=== PATIENT | male | born 1945 | race Caucasian/White ===

== ENCOUNTER 2018-12-29 11:57 | Emergency (ER) | payer OTHER, MEDICARE ==
--- NOTE | 2018-12-29 12:17 | ER Document Report ---
ED Medical Screen (RME) - General Chief Complaint: Shortness Of Breath Stated Complaint: URINARY PROBLEM Time Seen by Provider: 12/29/18 12:06 Mode of Arrival: Wheelchair Information source: Patient Notes: Very morbidly obese 73-year-old male presented to ED for extreme shortness of breath dyspnea. He states if he stands up for more than a few seconds he becomes extremely short of breath. He states he is gained about 70 pounds in the last 3 months. He states he was weighing about 400 pounds a couple years ago and now he weighs 500 pounds. Patient states he has a history of diabetes t ype 2 coronary artery disease with 2 stents prostate cancer with have his prostate removed by cryogenic surgery sleep apnea bronchitis pneumonia COPD CHF with severe water retention high blood pressure high cholesterol and morbidly obese. He states that for several years he weighed 400 and then he is slowly increased until now he weighs about 500 he is in a motorized wheelchair. He states he is a former smoker but does not smoke at this time. I have greeted and performed a rapid initial assessment of this patient. A comprehensive ED assessment and evaluation of the patient, analysis of test results and completion of medical decision making process will be conducted by an additional ED providers. Dictation of this chart was performed using voice recognition software; therefore, there may be some unintended grammatical errors. TRAVEL OUTSIDE OF THE [place] IN LAST 30 DAYS: No - Related Data Allergies/Adverse Reactions: No Known Allergies Allergy (Verified 12/29/18 11:58) Physical Exam - Vital signs Vitals: Temp Pulse Resp BP Pulse Ox 97.7 F 67 18 149/82 H 93 12/29/18 12:06 12/29/18 12:06 12/29/18 12:06 12/29/18 12:06 12/29/18 12:06 Course - Vital Signs Vital signs: Temp Pulse Resp BP Pulse Ox 97.7 F 67 18 149/82 H 93 12/29/18 12:06 12/29/18 12:06 12/29/18 12:06 12/29/18 12:06 12/29/18 12:06
--- NOTE | 2018-12-29 12:54 | RADIOLOGY REPORT (SQ) ---
EXAM DESCRIPTION: CHEST SINGLE VIEW COMPLETED DATE/TIME: 12/29/2018 12:37 pm REASON FOR STUDY: Short of breath gaining weight COMPARISON: None. EXAM PARAMETERS: NUMBER OF VIEWS: One view. TECHNIQUE: Single frontal radiographic view of the chest acquired. RADIATION DOSE: NA LIMITATIONS: None. FINDINGS: LUNGS AND PLEURA: No opacities, masses or pneumothorax. No pleural effusion. MEDIASTINUM AND HILAR STRUCTURES: No masses. Contour normal. HEART AND VASCULAR STRUCTURES: Cardiomegaly and pulmonary vascular prominence. BONES: No acute findings. HARDWARE: None in the chest. OTHER: No other significant finding. IMPRESSION: Cardiomegaly and pulmonary vascular prominence without overt pulmonary edema. TECHNICAL DOCUMENTATION: JOB ID: [id number] [employer]- All Rights Reserved Reading location - IP/workstation name: [email or web address]
[2018-12-29 13:26] LABS: ABSOLUTE EOSINOPHILS # (AUTO) 0.2 10^3/uL (0.0-0.6); ABSOLUTE LYMPHOCYTES (AUTO) 0.4 10^3/uL (0.5-4.7); ABSOLUTE MONOCYTES (AUTO) 0.6 10^3/uL (0.1-1.4); ABSOLUTE NEUT (AUTO) 3.2 10^3/uL (1.7-8.2); BASOPHILS % (AUTO) 1.1 % (0-2); EOSINOPHILS % (AUTO) 4.7 % (0-6); HEMATOCRIT 34.8 % (37.9-51.0); HEMOGLOBIN 11.4 g/dL (13.5-17.0); LYMPHOCYTES % (AUTO) 8.3 % (13-45); MEAN CORPUSCULAR HEMOGLOBIN 29.8 pg (27.0-33.4); MEAN CORPUSCULAR HGB CONC 32.8 g/dL (32.0-36.0); MEAN CORPUSCULAR VOLUME 91 fl (80-97); MONOCYTES % (AUTO) 13.8 % (3-13); PLATELET COUNT 138 10^3/uL (150-450); RED BLOOD COUNT 3.82 10^6/uL (4.35-5.55); RED CELL DISTRIBUTION WIDTH 15.8 % (11.5-14.0); SEGMENTED NEUTROPHILS % (AUTO) 72.1 % (42-78); TOTAL CELLS COUNTED % (AUTO) 100 %; WHITE BLOOD COUNT 4.4 10^3/uL (4.0-10.5)
[2018-12-29 13:39] LABS: ALANINE AMINOTRANSFERASE 25 U/L (21-72); ALKALINE PHOSPHATASE 93 U/L (38-126); ANION GAP 8 (5-19); ASPARTATE AMINO TRANSFERASE 40 U/L (17-59); BILIRUBIN,DIRECT 0.4 mg/dL (0.0-0.4); BILIRUBIN,TOTAL 0.9 mg/dL (0.2-1.3); BLOOD UREA NITROGEN 42 mg/dL (7-20); CALCIUM 9.1 mg/dL (8.4-10.2); CARBON DIOXIDE 32 mmol/L (22-30); CHLORIDE 102 mmol/L (98-107); CREATINE KINASE 268 U/L (55-170); GLUCOSE 145 mg/dL (75-110); POTASSIUM 4.5 mmol/L (3.6-5.0)
[2018-12-29 14:12] LABS: CREATINE KINASE MB 1.33 ng/mL (<4.55); NT PRO BNP 995 pg/mL (5-900)
[2018-12-29 14:18] LABS: TROPONIN I < 0.012 ng/mL
[2018-12-29] MEDS ORDERED: KETOROLAC TROMETHAMINE INJ/PF 30 MG/1 ML SDV IV ONE (18:43)
--- NOTE | 2018-12-29 18:49 | EKG REPORT ---
SEVERITY:- ABNORMAL ECG - SINUS RHYTHM ATRIAL PREMATURE COMPLEX NONSPECIFIC T ABNORMALITIES, DIFFUSE LEADS : Confirmed by: Jones Mary MD 29-Dec-2018 18:48:06
--- NOTE | 2018-12-29 18:53 | ER Document Report ---
ED General - General Chief Complaint: Shortness Of Breath Stated Complaint: URINARY PROBLEM Time Seen by Provider: 12/29/18 12:06 Primary Care Provider: BUDDY,CAYLA [Primary Care Provider] - Follow up as needed Mode of Arrival: Wheelchair Notes: Very morbidly obese 73-year-old male with congestive heart failure, diabetes, hypertension, COPD, hyperlipidemia presents to the emergency department with chief complaint of shortness of breath and dyspnea on exertion. He states that if he stands up for more than a few seconds he becomes extremely short of breath. He states a 70 pound weight gain in the last 3 months. was very upset upon initial interview because they have been here for quite a while and she feels they have not been getting good care. Patient denies any recent illness, denies dizziness or lightheadedness, denies any weakness or paralysis in any of extremities, denies any chest pain, denies abdominal pain, complains of lower back pain, complains of frequent urination, no other complaints. TRAVEL OUTSIDE OF THE [place] IN LAST 30 DAYS: No - Related Data Allergies/Adverse Reactions: No Known Allergies Allergy (Verified 12/29/18 11:58) Past Medical History - General Information source: Patient - Social History Smoking Status: Former Smoker Frequency of alcohol use: None Drug Abuse: None Family History: None Patient has suicidal ideation: No Patient has homicidal ideation: No - Past Medical History Cardiac Medical History: Reports: Hx Congestive Heart Failure Pulmonary Medical History: Reports: Hx Bronchitis, Hx COPD, Hx Pneumonia Endocrine Medical History: Reports: Hx Diabetes Mellitus Type 2 Renal/ Medical History: Denies: Hx Peritoneal Dialysis Past Surgical History: Reports: Hx Cardiac Surgery - stents, Hx Genitourinary Surgery - prostate Review of Systems - Review of Systems Constitutional: See HPI EENT: See HPI Cardiovascular: See HPI Respiratory: See HPI Gastrointestinal: See HPI Genitourinary: See HPI Male Genitourinary: No symptoms reported Musculoskeletal: No symptoms reported Skin: No symptoms reported Hematologic/Lymphatic: No symptoms reported Neurological/Psychological: No symptoms reported Physical Exam - Vital signs Vitals: Temp Pulse Resp BP Pulse Ox 97.7 F 67 18 149/82 H 93 12/29/18 12:06 12/29/18 12:06 12/29/18 12:06 12/29/18 12:06 12/29/18 12:06 - Notes Notes: PHYSICAL EXAMINATION: Reviewed vital signs and charting by RN GENERAL: Alert, interacts well. No acute distress. Morbid obesity HEAD: Normocephalic, atraumatic. EYES: Pupils equal and round. Extraocular movements intact. ENT: Oral mucosa moist, tongue midline. NECK: Full range of motion. Trachea midline. LUNGS: Clear to auscultation bilaterally, no wheezes, rales, or rhonchi. No respiratory distress. HEART: Regular rate and rhythm. No murmur ABDOMEN: Extremely large pannus EXTREMITIES: Moves all 4 extremities spontaneously. Bilateral lower extremities edematous, nonpitting, very tight PSYCH: Normal affect, normal mood. SKIN: Warm, dry, normal turgor. No rashes or lesions noted. Course - Re-evaluation Re-evalutation: 12/29/18 19:36 Patient very dissatisfied. proceeded to vent after a thorough discussion she calm down. Patient's BNP 995 but there is no trend. Lungs were clear to a uscultation in all briones. Patient states he takes Lasix 80 mg daily but he contradicted himself and said that he has not urinated since 10:00 this morning. No acute distress. At this time patient was very impatient and angry and said he just wanted to go home. I discussed with him giving him a short course of Bumex to see if that will help with the fluid retention, gave him Toradol 15 mg IV once, gave him dexamethasone 10 mg IV once. His blood glucose was 145. Patient has no red flags for back pain like urinary retention, saddle paresthesia, bowel incontinence, IV drug use or fevers. Also, I asked patient to ambulate on pulse ox but he was very fed up and wanted to leave. At this ti me he is stable for discharge. - Vital Signs Vital signs: Temp Pulse Resp BP Pulse Ox 97.9 F 63 17 103/88 H 96 12/29/18 19:17 12/29/18 19:17 12/29/18 19:17 12/29/18 19:17 12/29/18 19:17 - Laboratory Result Diagrams: 12/29/18 12:56 12/29/18 12:56 Laboratory results interpreted by me: 12/29/18 12/29/18 12/29/18 12:56 12:56 12:56 RBC 3.82 L Hgb 11.4 L Hct 34.8 L RDW 15.8 H Plt Count 138 L Lymphocytes % 8.3 L Monocytes % 13.8 H Absolute Lymphocytes 0.4 L Carbon Dioxide 32 H BUN 42 H Creatinine 1.67 H Est GFR ( Amer) 49 L Est GFR (Non-Af Amer) 41 L Glucose 145 H Creatine Kinase 268 H NT-Pro-B Natriuret Pep 995 H Discharge - Discharge Clinical Impression: Shortness of breath, Weight gain Back pain Qualifiers: Back pain location: low back pain Chronicity: acute Back pain laterality: bilateral Sciatica presence: without sciatica Qualified Code(s): M54.5 - Low back pain Condition: Good Disposition: HOME, SELF-CARE Additional Instructions: You are seen in the emergency department this evening for us of breath, weight gain, back pain. Because we were unable to get a urine sample [facility] results. Also, because you were having shortness of breath and the weight gain we are concerned that you might be having worsening CHF. Your BNP here in the emergency department was elevated but we do not have a good trend over time to see where you are at. Nonetheless, because you have not been responding to Lasix I also added a short course of a medication called Bumex that you can take once daily in the morning to help remove some of the fluid with your Lasix. Also, for your back pain you received a couple of medications, one is Toradol and the other is dexamethasone, and NSAID and a steroid, respectively. These will help with the pain and should help calm things down. Starting tomorrow morning I would take naproxen 500 mg every 12 hours with food or milk arou [id number] for the next week as it takes a good 24 to 36 hours for the anti- inflammatory effects to start with. [facility] to discuss [facility]. If you develop severe acute shortness of breath, severe chest pain, you pass out, or have any other concerning symptoms please immediately return to the emergency department. Prescriptions: Bumetanide [Bumex 1 mg Tablet] 1 tab PO DAILY #14 tab Referrals: [facility] [Primary Care Provider] - Follow up as needed
[2018-12-29 19:18] VITALS: BP 103/88
== END 2018-12-29 19:18 | disposition home or self-care (01) ==
LOC: ER 11:57
DX: R06.02 Shortness of breath (principal); M54.5 Low back pain; R63.5 Abnormal weight gain; R06.00 Dyspnea, unspecified; I50.9 Heart failure, unspecified; E11.9 Type 2 diabetes mellitus without complications; I11.0 Hypertensive heart disease with heart failure; J44.9 Chronic obstructive pulmonary disease, unspecified; Z87.891 Personal history of nicotine dependence
CPT/HCPCS: 93005; 99285; 96374; 36415; 82553; 82550; 85025; 80053; 84484; 83880; 71045; 93010; J1885

== ENCOUNTER 2019-06-01 11:56 | Inpatient (IN) | payer OTHER, MEDICARE ==
[2019-06-01 13:54] LABS: ABSOLUTE BASOPHILS # (AUTO) 0.1 10^3/uL (0.0-0.2); ABSOLUTE EOSINOPHILS # (AUTO) 0.2 10^3/uL (0.0-0.6); ABSOLUTE LYMPHOCYTES (AUTO) 0.4 10^3/uL (0.5-4.7); ABSOLUTE MONOCYTES (AUTO) 0.7 10^3/uL (0.1-1.4); ABSOLUTE NEUT (AUTO) 4.6 10^3/uL (1.7-8.2); BASOPHILS % (AUTO) 1.1 % (0-2); EOSINOPHILS % (AUTO) 3.1 % (0-6); HEMATOCRIT 30.7 % (37.9-51.0); HEMOGLOBIN 10.1 g/dL (13.5-17.0); LYMPHOCYTES % (AUTO) 6.9 % (13-45); MEAN CORPUSCULAR HEMOGLOBIN 29.7 pg (27.0-33.4); MEAN CORPUSCULAR HGB CONC 32.9 g/dL (32.0-36.0); MEAN CORPUSCULAR VOLUME 91 fl (80-97); MONOCYTES % (AUTO) 12.3 % (3-13); PLATELET COUNT 187 10^3/uL (150-450); RED BLOOD COUNT 3.39 10^6/uL (4.35-5.55); RED CELL DISTRIBUTION WIDTH 16.5 % (11.5-14.0); SEGMENTED NEUTROPHILS % (AUTO) 76.6 % (42-78); TOTAL CELLS COUNTED % (AUTO) 100 %; WHITE BLOOD COUNT 5.9 10^3/uL (4.0-10.5)
--- NOTE | 2019-06-01 14:14 | ER Document Report ---
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 Patient is morbidly obese with a BMI of 80 which adds to his breathing difficulties. Patient states he has put on weight and on review of the medical records the patient has gained around x20 kilograms in 5 months. Patient states he is able to void although it is a process to urinate. TRAVEL OUTSIDE OF THE [place] IN LAST 30 DAYS: No - Related Data Allergies/Adverse Reactions: ROSETTE Inhibitors Allergy (Unknown, Verified 06/01/19 16:10) Home Medications: pt reports no changed since discharge in december. pt reports he has not started the terrazosin as it just arrived from mail the other day. Past Medical History - General Information source: Patient, [facility] Records - Social History Smoking Status: Former Smoker Cigarette use (# per day): No Chew tobacco use (# tins/day): No Lives with: Spouse/Significant other Family History: None Patient has suicidal ideation: No Patient has homicidal ideation: No - Past Medical History Cardiac Medical History: Reports: Hx Congestive Heart Failure, Hx Heart Attack, Hx Hypercholesterolemia, Hx Hypertension Pulmonary Medical History: Reports: Hx Bronchitis, Hx COPD, Hx Pneumonia, Hx Sleep Apnea - On BiPAP Endocrine Medical History: Reports: Hx Diabetes Mellitus Type 2 Past Surgical History: Reports: Hx Cardiac Catheterization, Hx Cardiac Surgery - stents, Hx Genitourinary Surgery - prostate, Other - Left index finger amputation distal phalanx. Cryogenic surgery prostate wi Review of Systems - Review of Systems Constitutional: See HPI, Weight gain - 20 kilograms in 6 months EENT: No symptoms reported Cardiovascular: No symptoms reported Respiratory: See HPI, Short of breath Gastrointestinal: No symptoms reported Genitourinary: No symptoms reported Male Genitourinary: No symptoms reported Musculoskeletal: See HPI, Leg swelling Skin: No symptoms reported Hematologic/Lymphatic: No symptoms reported Neurological/Psychological: No symptoms reported -: Yes All other systems reviewed and negative Physical Exam - Vital signs Vitals: Temp Pulse Resp BP Pulse Ox 97.6 F 89 21 H 162/80 H 96 06/01/19 12:11 06/01/19 12:11 06/01/19 12:11 06/01/19 12:11 06/01/19 12:11 - Notes Notes: Physical Exam: General: Alert, appears short of breath but saturating 98% on room air. HEENT: Normocephalic. Atraumatic. PERRL. Extraocular movements intact. Oropharynx clear. Neck: Supple. Non-tender. Respiratory: No respiratory distress. Clear and equal breath sounds bilaterally. Cardiovascular: Regular rate and rhythm. Abdominal: Morbidly obese, large pannus. Back: No gross abnormalities. Extremities: Moves all four extremities. Upper extremities: Normal inspection. Normal ROM. Lower extremities: See lower extremity exam. Neurological: Normal cognition. AAOx4. Normal speech. Psychological: Normal affect. Normal Mood. Skin: 4+ pitting edema to lower extremities bilaterally with associated erythema and blistering, wearing stockings. Course - Re-evaluation Re-evalutation: 06/01/19 15:22 Patient's pulse ox is 98% on room air while he is laying almost flat with his morbidly obese abdomen pushing up on his diaphragm. - Vital Signs Vital signs: Temp Pulse Resp BP Pulse Ox 97.6 F 89 16 130/83 H 98 06/01/19 12:11 06/01/19 12:11 06/01/19 12:54 06/01/19 14:20 06/01/19 14:20 - Laboratory Result Diagrams: 06/01/19 13:25 06/01/19 13:25 Laboratory results interpreted by me: 06/01/19 06/01/19 06/01/19 13:25 13:25 13:25 RBC 3.39 L Hgb 10.1 L Hct 30.7 L RDW 16.5 H Lymph % (Auto) 6.9 L Absolute Lymphs (auto) 0.4 L VBG HCO3 Carbon Dioxide 33 H BUN 39 H Creatinine 2.15 H Est GFR ( Amer) 37 L Est GFR (MDRD) Non-Af 30 L Magnesium 2.5 H Creatine Kinase 468 H NT-Pro-B Natriuret Pep 1980 H Total Protein 8.5 H 06/01/19 14:20 RBC Hgb Hct RDW Lymph % (Auto) Absolute Lymphs (auto) VBG HCO3 32.6 H Carbon Dioxide BUN Creatinine Est GFR ( Amer) Est GFR (MDRD) Non-Af Magnesium Creatine Kinase NT-Pro-B Natriuret Pep Total Protein - Diagnostic Test Radiology reviewed: Image reviewed, Reports reviewed - Chest x-ray shows mild cardiomegaly with normal pulmonary vascular appearance. - EKG Interpretation by Me EKG shows normal: Sinus rhythm, [place], Intervals, QRS Complexes. abnormal: ST-T Waves - Diffuse nonspecific T wave abnormalities Rate: Normal - 87 Rhythm: NSR Voltage: Decreased voltage When compared to previous EKG there are: No significant change - Consults Dr. Fleming Time consulted: 16:00 Consulted provider: will come to ER Discharge - Discharge Clinical Impression: CO2 retention, Obstructive sleep apnea of adult, Anasarca, Morbid obesity with BMI of 70 and over, adult, Dyspnea on minimal exertion Condition: Good Disposition: ADMITTED INPATIENT Admitting Provider: Jennifer (Hospitalist) Unit Admitted: [facility] Referrals: [facility] [Primary [facility]] - Follow up as needed Scribe Attestation: 06/01/19 16:14 I personally performed the services described in the documentation, reviewed and edited the documentation which was dictated to the scribe in my presence, and it accurately records my words and actions. I personally performed the services described in the documentation, reviewed and edited the documentation which was dictated to the scribe in my presence, and it accurately records my words and actions.
--- NOTE | 2019-06-01 14:18 | RADIOLOGY REPORT (SQ) ---
EXAM DESCRIPTION: CHEST SINGLE VIEW COMPLETED DATE/TIME: 06/01/2019 1:56 pm REASON FOR STUDY: SOB COMPARISON: 01/25/2019. EXAM PARAMETERS: NUMBER OF VIEWS: One view. TECHNIQUE: Single frontal radiographic view of the chest acquired. RADIATION DOSE: NA LIMITATIONS: None. FINDINGS: LUNGS AND PLEURA: No opacities, masses or pneumothorax. No pleural effusion. MEDIASTINUM AND HILAR STRUCTURES: Stable right paratracheal fullness likely due to superimposed vesse ls. No masses. Contour normal. HEART AND VASCULAR STRUCTURES: Mild cardiomegaly. Normal vasculature. BONES: No acute findings. HARDWARE: None in the chest. OTHER: No other significant finding. IMPRESSION: STABLE APPEARANCE. MILD CARDIOMEGALY. NO ACUTE RADIOGRAPHIC FINDING IN THE CHEST. TECHNICAL DOCUMENTATION: JOB ID: [id number] [employer]- All Rights Reserved Reading location - IP/workstation name: [email or web address]
[2019-06-01 14:29] LABS: ALKALINE PHOSPHATASE 88 U/L (38-126); ANION GAP 9 (5-19); ASPARTATE AMINO TRANSFERASE 54 U/L (17-59); BILIRUBIN,DIRECT 0.2 mg/dL (0.0-0.4); BILIRUBIN,TOTAL 0.9 mg/dL (0.2-1.3); BLOOD UREA NITROGEN 39 mg/dL (7-20); CALCIUM 9.4 mg/dL (8.4-10.2); CARBON DIOXIDE 33 mmol/L (22-30); CHLORIDE 100 mmol/L (98-107); CREATINE KINASE 468 U/L (55-170); GLUCOSE 79 mg/dL (75-110); POTASSIUM 4.3 mmol/L (3.6-5.0); TOTAL PROTEIN 8.5 g/dL (6.3-8.2)
[2019-06-01 14:39] LABS: VENOUS BLOOD BASE EXCESS 6.4 mmol/L; VENOUS BLOOD HCO3 32.6 mmol/L (20-32); VENOUS BLOOD PCO2 55.5 mmHg (35-63); VENOUS BLOOD PH 7.39 (7.30-7.42)
[2019-06-01 14:42] LABS: TROPONIN I 0.014 ng/mL
[2019-06-01] MEDS ORDERED: FUROSEMIDE INJ/PF 100 MG/10 ML SDV IV ONE (15:55)
[2019-06-01 16:52] LABS: APPEARANCE,URINE CLEAR; BILIRUBIN,URINE NEGATIVE (NEGATIVE); COLOR,URINE YELLOW; GLUCOSE, URINE NEGATIVE (NEGATIVE); KETONES,URINE NEGATIVE (NEGATIVE); LEUKOCYTE ESTERASE,URINE NEGATIVE (NEGATIVE); NITRITE,URINE NEGATIVE (NEGATIVE); PROTEIN,URINE NEGATIVE (NEGATIVE); URINE SPECIFIC GRAVITY 1.016; UROBILINOGEN,URINE NEGATIVE mg/dL (<2.0)
[2019-06-01] MEDS ORDERED: MAG HYDROX/AL HYDROX/SIMETH SUSP 30 ML UDCUP PO PRN (19:45)
--- NOTE | 2019-06-01 20:15 | EKG REPORT ---
SEVERITY:- ABNORMAL ECG - SINUS RHYTHM LOW VOLTAGE THROUGHOUT NONSPECIFIC T ABNORMALITIES, DIFFUSE LEADS : Confirmed by: Dorcas Yeh MD 01-Jun-2019 20:14:39
[2019-06-01] MEDS ORDERED: DOBUTAMINE HCL/D5W 250 ML IV PRN (20:18)
[2019-06-01] MEDS ORDERED: SODIUM CHLORIDE NASAL SPRAY 44 ML NASL PRN (20:28)
[2019-06-01] MEDS ORDERED: CARBOXYMETHYLCELLULOSE SOD 0.5% 0.4 ML DROPERETTE OU PRN (20:28)
[2019-06-01] MEDS ORDERED: DEXTROSE 40% GEL 15 GM TUBE PO PRN ×2 (20:30)
[2019-06-01] MEDS ORDERED: GLUCAGON,HUMAN RECOMB 1 MG INJ IM PRN (20:30)
[2019-06-01] MEDS ORDERED: DEXTROSE 50%-WATER 25 GM/50 ML DISP.SYRIN IV PRN ×2 (20:30)
[2019-06-01] MEDS ORDERED: ONDANSETRON 4 MG TAB.RAPDIS PO PRN (20:31)
--- NOTE | 2019-06-01 20:33 | PDOC H&P ---
History of Present Illness Admission Date/PCP: 06/01/19 16:18 [facility] Patient complains of: Difficulty breathing History of Present Illness: NOE VICK is a 73 year old male with multiple previous admissions who reports that over the last month he had slowly been getting more more short of breath, noted more swelling and increasing weight. He is super morbidly obese and has had multiple previous admissions. 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 Past Medical History Cardiac Medical History: Reports: Congestive Heart Failure, Myocardial Infarction, Hyperlipidema, Hypertension Pulmonary Medical History: Reports: Bronchitis, Chronic Obstructive Pulmonary Disease (COPD), Pneumonia, Sleep Apnea - DWAYNE On BiPAP Endocrine Medical History: Reports: Diabetes Mellitus Type 2 Renal/ Medical History: Reports: Chronic Kidney Disease GI Medical History: Denies: Crohn's Disease, Diverticulitis, Gastroesophageal Reflux Disease, Hepatitis, Ulcerative Colitis Musculoskeltal Medical History: Denies: Arthritis, Fibromyalgia Psychiatric Medical History: Denies: Depression Hematology: Reports: Anemia - With chronic kidney disease Denies: Bleeding Tendencies, Heparin Induced Thrombocytopenia, Neutropenia Past Surgical History Past Surgical History: Reports: Cardiac Catheterization, Other - Left index finger amputation distal phalanx. Cryogenic surgery prostate wi Social History Information Source: Patient Lives with: Spouse/Significant other Smoking Status: Former Smoker Electronic Cigarette use?: No Last Time Smoked: 40 years ago. Frequency of Alcohol Use: None Hx Recreational Drug Use: No Drugs: None Hx Prescription Drug Abuse: No - Advance Directive Resuscitation Status: Do Not Resuscitate Surrogate healthcare decision maker:: The patient informed this provider that he would not want to be intubated or resuscitated. We discussed the fact that in his current state his chances of meaningful survival would be extremely limited. Family History Family History: None Parental Family History Reviewed: No Children Family History Reviewed: No Sibling(s) Family History Reviewed.: No Medication/Allergy Home Medications: Acetaminophen [Tylenol 325 mg Tablet] 650 mg PO Q4HP PRN 06/01/19 Albuterol Sulfate [Proair Hfa Inhalation Aerosol 8.5 gm Mdi] 2 puff IH Q6HP PRN 06/01/19 Amlodipine Besylate [Norvasc 10 mg Tablet] 5 mg PO DAILY 06/01/19 Aspirin [Ecotrin 81 mg EC Tablet] 81 mg PO DAILY 06/01/19 Carboxymethylcellulose Sodium [Refresh Plus 0.5% Oph Soln 0.4 ml [place]] 1 drop OU BIDP PRN 06/01/19 Docusate Sodium [Colace 100 mg Capsule] 100 mg PO QHS 06/01/19 Fluticasone Propionate [Flonase Nasal Dustin 50 Mcg/Dustin 16 gm] 1 spray NASL Q12 06/01/19 Furosemide [Lasix 80 mg Tablet] 80 mg PO QAM 06/01/19 Glipizide [Glocotrol 5 Mg Tablet] 5 mg PO Q12 06/01/19 Hydralazine HCl [Apresoline 10 mg Tablet] 10 mg PO Q8 06/01/19 Multivitamin [Multiple Vitamins] 1 each PO DAILY 06/01/19 Petrolatum,White [Hydrophor] 1 applic TP BID 06/01/19 Simvastatin [Zocor 80 mg Tablet] 40 mg PO QHS 06/01/19 Sodium Chloride [Ector Nasal Dustin 44 ml Bottle] 1 spray NASL Q4HP PRN 06/01/19 Terazosin HCl [Hytrin] 2 mg PO QHS 06/01/19 Allergies/Adverse Reactions: ROSETTE Inhibitors Allergy (Unknown, Verified 06/01/19 16:10) Review of Systems All systems: reviewed and no additional remarkable complaints except as stated Constitutional: PRESENT: fatigue, weight gain Cardiovascular: PRESENT: dyspnea on exertion, edema, orthropnea Respiratory: PRESENT: dyspnea Gastrointestinal: PRESENT: constipation Neurological: PRESENT: tingling Hematologic/Lymphatic: PRESENT: easy bruising Physical Exam Vital Signs: Temp Pulse Resp BP Pulse Ox 98.2 F 87 20 130/53 H 91 L 06/01/19 19:13 06/01/19 19:13 06/01/19 19:13 06/01/19 19:13 06/01/19 19:13 Intake & Output 05/31/19 06/01/19 06/02/19 06:59 06:59 06:59 Output Total 750 Balance -750 Weight 224.3 kg General appearance: PRESENT: mild distress - Mild to moderate distress, morbidly obese - Super morbidly obese with BMI of 71 and body weight of 224 kg, well- developed Head exam: PRESENT: atraumatic, normocephalic Eye exam: PRESENT: conjunctiva pale. ABSENT: scleral icterus Ear exam: PRESENT: normal external ear exam. ABSENT: bleeding, drainage Mouth exam: PRESENT: moist, tongue midline Neck exam: PRESENT: other - Very large neck Respiratory exam: PRESENT: decreased breath sounds - Extremely diminished breath sounds partly due to body habitus, rales Cardiovascular exam: PRESENT: RRR, +S1, +S2, other - Extremely distant heart sounds due to body habitus GI/Abdominal exam: PRESENT: diminished bowel sounds - Diminished bowel sounds likely due to body habitus, soft, other - Markedly protuberant abdomen. ABSENT: tenderness Extremities exam: PRESENT: other - 4+ edema Musculoskeletal exam: ABSENT: normal inspection Neurological exam: PRESENT: alert, awake, oriented to person, oriented to place, oriented to time, oriented to situation, CN II-XII grossly intact Psychiatric exam: PRESENT: appropriate affect. ABSENT: agitated, anxious Focused psych exam: ABSENT: delusional, restlessness Skin exam: PRESENT: dry, warm, other - Occasional ecchymotic lesions. ABSENT: rash Results Laboratory Results: 06/01/19 13:25 06/01/19 13:25 06/01/19 06/01/19 06/01/19 13:25 13:25 14:20 WBC 5.9 RBC 3.39 L Hgb 10.1 L Hct 30.7 L MCV 91 MCH 29.7 MCHC 32.9 RDW 16.5 H Plt Count 187 Seg Neutrophils % 76.6 VBG pH 7.39 VBG pCO2 55.5 VBG HCO3 32.6 H VBG Base Excess 6.4 Sodium 142.1 Potassium 4.3 Chloride 100 Carbon Dioxide 33 H Anion Gap 9 BUN 39 H Creatinine 2.15 H Est GFR ( Amer) 37 L Glucose 79 Calcium 9.4 Magnesium 2.5 H Total Bilirubin 0.9 AST 54 Alkaline Phosphatase 88 Total Protein 8.5 H Albumin 4.0 Urine Color Urine Appearance Urine pH Ur Specific [place] Urine Protein Urine Glucose (UA) Urine Ketones Urine Blood Urine Nitrite Ur Leukocyte Esterase Urine WBC (Auto) Urine RBC (Auto) 06/01/19 16:24 WBC RBC Hgb Hct MCV MCH MCHC RDW Plt Count Seg Neutrophils % VBG pH VBG pCO2 VBG HCO3 VBG Base Excess Sodium Potassium Chloride Carbon Dioxide Anion Gap BUN Creatinine Est GFR ( Amer) Glucose Calcium Magnesium Total Bilirubin AST Alkaline Phosphatase Total Protein Albumin Urine Color YELLOW Urine Appearance CLEAR Urine pH 5.0 Ur Specific [place] 1.016 Urine Protein NEGATIVE Urine Glucose (UA) NEGATIVE Urine Ketones NEGATIVE Urine Blood NEGATIVE Urine Nitrite NEGATIVE Ur Leukocyte Esterase NEGATIVE Urine WBC (Auto) 0 Urine RBC (Auto) 0 06/01/19 06/01/19 13:25 13:25 Creatine Kinase 468 H Troponin I 0.014 NT-Pro-B Natriuret Pep 1980 H Impressions: Chest X-Ray 06/01/19 13:34 IMPRESSION: STABLE APPEARANCE. MILD CARDIOMEGALY. NO ACUTE RADIOGRAPHIC FINDING IN THE CHEST. Assessment and Plan - Diagnosis (1) Acute on chronic systolic (congestive) heart failure Is this a current diagnosis for this admission?: Yes Plan: 06/01/2019-we will place on dobutamine and continue furosemide. Monitor renal function and electrolytes. Monitor vital signs on dobutamine. (2) Acute kidney injury superimposed on CKD Is this a current diagnosis for this admission?: Yes Plan: 06/01/2019-creatinine is higher than baseline. Likely due to exacerbation of co ngestive heart failure. Plan as above (3) Anasarca Is this a current diagnosis for this admission?: Yes Plan: 06/01/2019-due to a combination of his congestive heart failure and chronic kidney disease. Serum albumin is normal therefore IV albumin will not help. Continue diuretic regimen (4) Acute respiratory failure with hypoxia Is this a current diagnosis for this admission?: Yes Plan: 06/01/2019-supplement oxygen to keep saturation 90 to 94% respiratory failure due to congestive heart failure and super morbid obesity (5) Diabetes mellitus type 2 in obese Is this a current diagnosis for this admission?: Yes Plan: 06/01/2019-continue baseline oral medication and Accu-Cheks with meals and at bedtime. Sliding scale available. (6) Morbid obesity with BMI of 70 and over, adult Is this a current diagnosis for this admission?: Yes Plan: 06/01/2019-significant contributor to overall clinical status. Patient should consider bariatric surgery. (7) Obstructive sleep apnea of adult Is this a current diagnosis for this admission?: Yes Plan: 06/01/2019-due to his morbid obesity. Continue the patient's BiPAP with his own machine (8) Coronary artery disease involving [place] coronary artery Qualifiers: [place] vs. transplanted heart: [place] heart Associated angina: without a ngina Qualified Code(s): I25.10 - Atherosclerotic heart disease of [place] coronary artery without angina pectoris Is this a current diagnosis for this admission?: Yes Plan: 06/01/2019-continue antihypertensives, aspirin, statin therapy and cardiac diet (9) Hypertension Qualifiers: Hypertension type: essential hypertension Qualified Code(s): I10 - Essential (primary) hypertension Is this a current diagnosis for this admission?: Yes Plan: 06/01/2019-continue antihypertensives. Wean patient from dobutamine when appropriate. - Plan Summary Summary: Patient with recent admission in December. Long-term management should include consideration of bariatric surgery. - Time Time Spent with patient: 35 or more minutes Medications reviewed and adjusted accordingly: Yes Anticipated discharge: Home with Homehealth - Inpatient Certification Based on my medical assessment, after consideration of the patient's comorbidities, presenting symptoms, or acuity I expect that the services needed warrant INPATIENT care.: Yes I certify that my determination is in accordance with my understanding of Medicare's requirements for reasonable and necessary INPATIENT services [42 CFR 412.3e].: Yes Medical Necessity: Failure to Improve With Outpatient Therapy, Significant Comorbidiites Make Outpatient Treatment Too Risky, Need For Continuous Telemetry Monitoring Post Hospital Care: D/C [employer] Documentation
[2019-06-01] MEDS ORDERED: (PENDING PHARMACY ID) (Terazosin Hcl [Hytrin] 2 MG) PO SCH (22:00)
[2019-06-01] MEDS ORDERED: (PENDING PHARMACY ID) (Simvastatin [Zocor 80 Mg Tablet] 40 MG) PO SCH (22:00)
[2019-06-01] MEDS: DOXAZOSIN MESYLATE 2 MG TABLET PO SCH (22:40)
[2019-06-01] MEDS: HYDRALAZINE HCL 10 MG TABLET PO SCH (22:41)
[2019-06-01] MEDS: GLIPIZIDE 5 MG TABLET PO SCH (22:41)
[2019-06-01] MEDS: SIMVASTATIN 40 MG TABLET PO SCH (22:41)
[2019-06-01] MEDS: FLUTICASONE NASAL SPRAY 50 MCG/SPRY 120 SPRAY/16 GM NASL SCH (22:42)
[2019-06-01] MEDS: HEPARIN SOD (PORCINE) 5,000 UNIT/ML 1 ML VIAL SUBCUT SCH (22:42)
[2019-06-01] MEDS: INSULIN LISPRO 100 UNIT/ML 3 ML VIAL SUBCUT SCH (22:42)
[2019-06-01] MEDS: DOBUTAMINE HCL/D5W 500 MG/250 ML RTUINJ IV PRN (22:45)
[2019-06-02] MEDS: ACETAMINOPHEN 325 MG TABLET PO PRN (00:46)
[2019-06-02] MEDS ORDERED: KETOROLAC TROMETHAMINE INJ/PF 30 MG/1 ML SDV IV PRN (01:40)
[2019-06-02 05:17] LABS: ABSOLUTE EOSINOPHILS # (AUTO) 0.1 10^3/uL (0.0-0.6); ABSOLUTE LYMPHOCYTES (AUTO) 0.4 10^3/uL (0.5-4.7); ABSOLUTE MONOCYTES (AUTO) 0.7 10^3/uL (0.1-1.4); ABSOLUTE NEUT (AUTO) 3.3 10^3/uL (1.7-8.2); BASOPHILS % (AUTO) 0.9 % (0-2); EOSINOPHILS % (AUTO) 2.9 % (0-6); HEMATOCRIT 28.5 % (37.9-51.0); HEMOGLOBIN 9.3 g/dL (13.5-17.0); LYMPHOCYTES % (AUTO) 8.6 % (13-45); MEAN CORPUSCULAR HEMOGLOBIN 29.4 pg (27.0-33.4); MEAN CORPUSCULAR HGB CONC 32.8 g/dL (32.0-36.0); MEAN CORPUSCULAR VOLUME 90 fl (80-97); MONOCYTES % (AUTO) 15.7 % (3-13); PLATELET COUNT 152 10^3/uL (150-450); RED BLOOD COUNT 3.17 10^6/uL (4.35-5.55); RED CELL DISTRIBUTION WIDTH 16.1 % (11.5-14.0); SEGMENTED NEUTROPHILS % (AUTO) 71.9 % (42-78); TOTAL CELLS COUNTED % (AUTO) 100 %; WHITE BLOOD COUNT 4.6 10^3/uL (4.0-10.5)
[2019-06-02] MEDS: HYDRALAZINE HCL 10 MG TABLET PO SCH ×3 (05:23→21:56)
[2019-06-02] MEDS: HEPARIN SOD (PORCINE) 5,000 UNIT/ML 1 ML VIAL SUBCUT SCH ×3 (05:29→22:01)
[2019-06-02 05:41] LABS: ALBUMIN 3.7 g/dL (3.5-5.0); ANION GAP 12 (5-19); BLOOD UREA NITROGEN 41 mg/dL (7-20); CALCIUM 9.2 mg/dL (8.4-10.2); CARBON DIOXIDE 27 mmol/L (22-30); CHLORIDE 105 mmol/L (98-107); GLUCOSE 81 mg/dL (75-110); PHOSPHORUS 4.3 mg/dL (2.5-4.5); POTASSIUM 4.1 mmol/L (3.6-5.0)
[2019-06-02] MEDS ORDERED: FUROSEMIDE 80 MG TABLET PO SCH (08:00)
[2019-06-02] MEDS: FLUTICASONE NASAL SPRAY 50 MCG/SPRY 120 SPRAY/16 GM NASL SCH ×2 (09:46→21:59)
[2019-06-02] MEDS: AMLODIPINE BESYLATE 10 MG TABLET PO SCH (09:48)
[2019-06-02] MEDS: DOCUSATE SODIUM 100 MG CAPSULE PO SCH ×2 (09:48→18:10)
[2019-06-02] MEDS: MULTIVITAMIN TABLET PO SCH (09:48)
[2019-06-02] MEDS: GLIPIZIDE 5 MG TABLET PO SCH ×2 (09:49→21:59)
[2019-06-02] MEDS: ASPIRIN 81 MG TABLET, ENT COATED PO SCH (09:49)
[2019-06-02] MEDS: INSULIN LISPRO 100 UNIT/ML 3 ML VIAL SUBCUT SCH ×4 (09:53→21:48)
[2019-06-02] MEDS: FUROSEMIDE INJ/PF 40 MG/4 ML SDV IV SCH ×3 (09:56→18:14)
[2019-06-02] MEDS ORDERED: AMLODIPINE BESYLATE 10 MG TABLET PO SCH (10:00)
[2019-06-02] MEDS: OXYCODONE HCL IR 5 MG TABLET PO PRN ×2 (12:03→18:15)
[2019-06-02] MEDS: PANTOT AC/MIN OIL/PET HY-PHL OINT 50 GM TOP SCH ×2 (12:22→18:12)
--- NOTE | 2019-06-02 13:10 | PDOC PROGRESS REPORT ---
Subjective Progress Note for:: 06/02/19 Subjective:: Patient is resting in bed. Clearly struggling. He is very frustrated. His reports that he is having sharp pain in the left flank. He has also had hearing injuries under the buttock. These lesions were bleeding just prior to admission. The patient is very frustrated. He also complains of trembling in his limbs. Reason For Visit: ANASARCA Physical Exam Vital Signs: Temp Pulse Resp BP Pulse Ox 97.6 F 95 22 H 127/58 H 95 06/02/19 11:16 06/02/19 11:16 06/02/19 11:16 06/02/19 11:16 06/02/19 11:16 Intake & Output 06/01/19 06/02/19 06/03/19 06:59 06:59 06:59 Intake Total 240 Output Total 1625 300 Balance -1625 -60 Weight 224.3 kg 224.3 kg General appearance: PRESENT: cooperative, mild distress, morbidly obese, well- developed Head exam: PRESENT: atraumatic, normocephalic Ear exam: PRESENT: normal external ear exam. ABSENT: bleeding, drainage Neck exam: PRESENT: other - Marked redundant tissue in the neck Respiratory exam: PRESENT: decreased breath sounds - Very decreased breath sound s.. ABSENT: tachypnea, wheezes Cardiovascular exam: PRESENT: RRR, +S1, +S2, other - Very distant heart sounds GI/Abdominal exam: PRESENT: normal bowel sounds, soft, other - Pendulous abdomen to the knees Neurological exam: PRESENT: alert, awake, oriented to person, oriented to place, oriented to time, oriented to situation Psychiatric exam: PRESENT: anxious Results Laboratory Results: 06/02/19 04:51 06/02/19 04:51 06/01/19 06/01/19 06/01/19 13:25 13:25 14:20 WBC 5.9 RBC 3.39 L Hgb 10.1 L Hct 30.7 L MCV 91 MCH 29.7 MCHC 32.9 RDW 16.5 H Plt Count 187 Seg Neutrophils % 76.6 VBG pH 7.39 VBG pCO2 55.5 VBG HCO3 32.6 H VBG Base Excess 6.4 Sodium 142.1 Potassium 4.3 Chloride 100 Carbon Dioxide 33 H Anion Gap 9 BUN 39 H Creatinine 2.15 H Est GFR ( Amer) 37 L Glucose 79 Calcium 9.4 Phosphorus Magnesium 2.5 H Total Bilirubin 0.9 AST 54 Alkaline Phosphatase 88 Total Protein 8.5 H Albumin 4.0 Urine Color Urine Appearance Urine pH Ur Specific [place] Urine Protein Urine Glucose (UA) Urine Ketones Urine Blood Urine Nitrite Ur Leukocyte Esterase Urine WBC (Auto) Urine RBC (Auto) 06/01/19 06/02/19 06/02/19 16:24 04:51 04:51 WBC 4.6 RBC 3.17 L Hgb 9.3 L Hct 28.5 L MCV 90 MCH 29.4 MCHC 32.8 RDW 16.1 H Plt Count 152 Seg Neutrophils % 71.9 VBG pH VBG pCO2 VBG HCO3 VBG Base Excess Sodium 144.0 Potassium 4.1 Chloride 105 Carbon Dioxide 27 Anion Gap 12 BUN 41 H Creatinine 2.03 H Est GFR ( Amer) 39 L Glucose 81 Calcium 9.2 Phosphorus 4.3 Magnesium 2.5 H Total Bilirubin AST Alkaline Phosphatase Total Protein Albumin 3.7 Urine Color YELLOW Urine Appearance CLEAR Urine pH 5.0 Ur Specific [place] 1.016 Urine Protein NEGATIVE Urine Glucose (UA) NEGATIVE Urine Ketones NEGATIVE Urine Blood NEGATIVE Urine Nitrite NEGATIVE Ur Leukocyte Esterase NEGATIVE Urine WBC (Auto) 0 Urine RBC (Auto) 0 06/01/19 06/01/19 13:25 13:25 Creatine Kinase 468 H Troponin I 0.014 NT-Pro-B Natriuret Pep 1980 H Impressions: Chest X-Ray 06/01/19 13:34 IMPRESSION: STABLE APPEARANCE. MILD CARDIOMEGALY. NO ACUTE RADIOGRAPHIC FINDING IN THE CHEST. Assessment and Plan - Diagnosis (1) Acute on chronic systolic (congestive) heart failure Is this a current diagnosis for this admission?: Yes Plan: 06/01/2019-we will place on dobutamine and continue furosemide. Monitor renal function and electrolytes. Monitor vital signs on dobutamine. 06/02/2019-the patient is tolerating dobutamine. He has increased urine output. There is noticeable decrease in swelling in his hands. Continue dobutamine at this time. (2) Acute kidney injury superimposed on CKD Is this a current diagnosis for this admission?: Yes Plan: 06/01/2019-creatinine is higher than baseline. Likely due to exacerbation of congestive heart failure. Plan as above 06/02/2019-nephrology will be seeing the patient. The asked about hemodialysis. This would be an extremely difficult hemodialysis patient and in fact I do not think he would do well on dialysis. I did tell the patient that we would need to go slowly and see how he responds to treatment. Nephrology will be seeing the patient as well. (3) Anasarca Is this a current diagnosis for this admission?: Yes Plan: 06/01/2019-due to a combination of his congestive heart failure and chronic kidney disease. Serum albumin is normal therefore IV albumin will not help. Continue diuretic regimen 06/02/2019-slowly improving. Progress will be very slow. (4) Acute respiratory failure with hypoxia Is this a current diagnosis for this admission?: Yes Plan: 06/01/2019-supplement oxygen to keep saturation 90 to 94% respiratory failure due to congestive heart failure and super morbid obesity 06/02/2019-continue oxygen supplementation. At this point he agrees mouth asleep by his BiPAP. (5) Diabetes mellitus type 2 in obese Is this a current diagnosis for this admission?: Yes Plan: 06/01/2019-continue baseline oral medication and Accu-Cheks with meals and at bedtime. Sliding scale available. 06/02/2019-continue Accu-Cheks as well as sliding scale insulin in addition to his glipizide (6) Morbid obesity with BMI of 70 and over, adult Is this a current diagnosis for this admission?: Yes Plan: 06/01/2019-significant contributor to overall clinical status. Patient should consider bariatric surgery. 06/02/2019-I did discuss with the patient and his if anyone had ever referred them for consideration of bariatric surgery. Even when he was less than 250 pounds there was a concern because he was extremely difficult to intubate. Since then his weight has doubled and it would be impossible to operate on the patient at this time. (7) Obstructive sleep apnea of adult Is this a current diagnosis for this admission?: Yes Plan: 06/01/2019-due to his morbid obesity. Continue the patient's BiPAP with his own machine 06/02/2019-continue BiPAP. His sleep apnea likely contributes to his obesity and heart failure by way of pulmonary hypertension. (8) Coronary artery disease involving [place] coronary artery Qualifiers: [place] vs. transplanted heart: [place] heart Associated angina: without angina Qualified Code(s): I25.10 - Atherosclerotic heart disease of [place] coronary artery without angina pectoris Is this a current diagnosis for this admission?: Yes Plan: 06/01/2019-continue antihypertensives, aspirin, statin therapy and cardiac diet 06/02/2019-currently asymptomatic with regard to acute coronary syndrome. Co ntinue current regimen. (9) Hypertension Qualifiers: Hypertension type: essential hypertension Qualified Code(s): I10 - Essential (primary) hypertension Is this a current diagnosis for this admission?: Yes Plan: 06/01/2019-continue antihypertensives. Wean patient from dobutamine when appropriate. 06/02/2019-we will continue his current regimen. He is tolerating the do butamine without adverse effect. (10) Obesity hypoventilation syndrome Is this a current diagnosis for this admission?: Yes Plan: 06/02/2019-the patient clearly has obesity hypoventilation syndrome complicating his already complex comorbidities. At this point he would not even be a surgical candidate for weight loss. This gives him an extremely poor prognosis. - Plan Summary Summary: Patient with recent admission in December. Long-term management should include consideration of bariatric surgery. 06/02/2019-after further discussion with the patient and his , the bariatric surgical intervention is not a possibility. I had a chance to talk to the patient's outside of the room. She expressed her frustration. She also expressed the patient's frustration. I did tell her that in all honestly I did not feel the patient would do well. In fact I thought he might get short-term relief from this intervention but he would only be back in the hospital and it would be likely that the windows between periods of decompensation would be getting shorter and shorter. Because I do not think he will make a meaningful recovery and that his condition will only progressively worsen I strongly suggested that the patient and his obtain a palliative care consult. I urged her to consider hospice care at this time. She expressed concern that if this was brought up her would think that she did not love him or care about him. He might think that she wants to get rid of them. I strongly reinforced the fact that after 50 years of marriage it is extremely unlikely th at the patient would think that way especially considering all that she sacrifices for the patient. We discussed the fact that the patient is scared but has an underlying suspicion as to the extremely poor prognosis. I have placed a consult for palliative care/hospice. - Time Time Spent with patient: 25-34 minutes Medications reviewed and adjusted accordingly: Yes Anticipated discharge: Hospice
[2019-06-02] MEDS: DOBUTAMINE HCL/D5W 500 MG/250 ML RTUINJ IV PRN (15:06)
--- NOTE | 2019-06-02 15:08 | RADIOLOGY REPORT (SQ) ---
EXAM DESCRIPTION: PICC INSERTION; U/S GUIDE FOR VASCULAR ACCESS COMPLETED DATE/TIME: 06/02/2019 2:21 pm; 06/02/2019 2:23 pm REASON FOR STUDY: NEED FOR CENTRAL LINE/PICC LINE; IV ABX COMPARISON: None. FLUOROSCOPY TIME: None. PICC line was placed at bedside 5 chest radiographs were obtained during the procedure, images saved to PACS. TECHNIQUE: Refer to Procedure. LIMITATIONS: None. PROCEDURE: The procedure, risks, benefits, and alternatives were discussed with the patient in the p reprocedural area, and all questions were answered. Informed consent was obtained verbally and in wri ting. The patient was then brought to the procedural suite, positioned supine on a gurney, and a time-out w as performed. At first the left upper extremity was evaluated with ultrasound and the brachial vein was found to be patent and compressible. The left upper extremity was then prepped and draped with 2% chlorhexidine utilizing standard sterile technique. After the skin over the basilic vein was anesthetized with 1% l idocaine, ultrasound guidance was used to access the vessel with a 21-gauge needle - a sonographic im age was stored for documentation. A 0.018 inch guidewire was then inserted through the needle and adv anced into the SVC. After that, the needle was exchanged over the guidewire for a peel-away sheath. A 5 [place] double -lumen PICC was then cut to the appropriate length of 45 cm, inserted through the sh eath and advanced into the SVC. After that, the peel-away sheath was removed and radiographic images of the chest was obtained to confirm proper position of the catheter tip within SVC. The lumens of the PICC were then aspirated, flushed with sterile saline and heparinized. At the end of the procedure the PICC was secured in place and a sterile dressing applied over it. The patient tolerated the procedure well without immediate complication. At the end of the procedure the patient's condition was unchanged from the preprocedural baseline. No IV conscious sedation was administered. Physiologic monitoring was provided before, during, and after the procedure. Documentation of [id number] time performing proceduralist spent monitoring the patient: 15 minutes. IMPRESSION: SUCCESSFUL PLACEMENT OF A 5 FR x 45 CM DOUBLE LUMEN PICC VIA THE LEFT BASILIC VEIN UTILI MENA SONOGRAPHIC GUIDANCE. COMMENT: Patient medication list reviewed: Yes- Quality ID# [id number]:Eligible professional attests to doc umenting in the medical record they obtained, updated, or reviewed the patient's current medications. . Quality ID 145: Final reports for procedures using fluoroscopy that document radiation exposure shemar stacie, or exposure time and number of fluorographic images (if radiation exposure indices are not avail able) Quality ID #76: The patient was prepped and draped using maximum sterile barrier technique including cap, mask, sterile gown, sterile gloves, a large sterile sheet, hand hygiene, and 2% Chlorhexidine fo r cutaneous antisepsis. When ultrasound is used, sterile ultrasound techniques are followed requiring sterile gel and sterile probes. TECHNICAL DOCUMENTATION: JOB ID: [id number] [employer]- All Rights Reserved Reading location - IP/workstation name: [email or web address]
--- NOTE | 2019-06-02 17:39 | PDOC CONSULTATION ---
Consultation Consult Date: 06/02/19 Provider Consulted: MARYANNE ALEJANDRO Consult reason:: I was asked to see the patient due to worsening kidney function in a patient with history of chronic kidney disease, congestive heart failure and anasarca. History of Present Illness Admission Date/PCP: 06/01/19 16:18 [place] [facility] History of Present Illness: NOE VICK is a 73 year old male who is morbidly obese, and has history of biventricular congestive heart failure, coronary artery disease, COPD, obstructive sleep apnea on CPAP, chronic kidney disease, diabetes, and hypertension who was sent to the emergency room via EMS from our office sent by Dr. Mederos for further evaluation and management. Patient was admitted between December and January of this year for congestive heart failure and acute on chronic kidney disease. During that admission the patient was diuresed and was treated with dobutamine and milrinone drips. Patient was discharged home slightly improved. However according to the since discharge the patient has gradually gained fluid and started to be more swollen associated with worsening shortness of breath. He has seen his [place] primary care provider on May 24 and his furosemide was increased from 60 mg twice daily to 80 mg twice daily. However according to the this did not really do anything with the patient's swelling and shortness of breath. He also saw an advanced practice provider of cardiology office in [facility] but according to the did not really change much. He presented to the office to see Dr. Mederos yesterday and he was noted to be very short of breath so he was sent to the emergency room. Patient has very limited echocardiogram done on January 10, 2019 which showed an LVEF possible 55%. Patient's relates that the patient has significant scrotal edema and a significant weight gain for the last few months. said that when they moved here in [place] from [place] in September of this year patient weighed 430 pounds and currently is about over 500 pounds. states the patient complains of left flank pain which is sharp but not steady for the last couple months. He has decreased appetite and appears to be more sleepy recently. He was also noted to have decreased urine output even with the increase in the furosemide dose. He limits his fluid intake to about 24 ounces daily. said he does not salt her food but they eat canned soups and canned meat. Upon presentation in the emergency room his initial evaluation included BUN of 39, creatinine of 2.15 with EGFR of 30. When he was discharged on January 30 he had a BUN of 24, creatinine of 1.35 with EGFR greater than 60. During that admission his kidney function has gotten worse to BUN of 73 creatinine of 2.41 with EGFR of 32 on January 10. His chest x-ray showed mild cardiomegaly but no acute findings. His BNP was 1980. He was started on dobutamine and Lasix 40 mg IV twice daily. So far he is passing a good amount of urine output producing about 1650 mL overnight since admission. tells me that she sees a little bit of difference and that his swelling in his hands and arms seems to be better. Past Medical History Cardiac Medical History: Reports: CHF-Diastolic, CHF-Systolic, Hyperlipidemia, Hypertension-primary, Myocardial Infarction, Pulmonary Hypertension Pulmonary Medical History: Reports: Bronchitis, Chronic Obstructive Pulmonary Disease (COPD), Pneumonia, Sleep Apnea - DWAYNE On BiPAP Endocrine Medical History: Reports: Diabetes Mellitus Type 2, Obesity Renal/ Medical History: Reports: Chronic Kidney Disease Stage III Malignancy Medical History: Reports: Other - Prostate cancer Hematology Medical History: Reports Anemia Past Surgical History Past Surgical History: Reports: Cardiac Catheterization, Other - Left index finger distal phalanx amputation,cryogenic partial prostatectomy Social History Information Source: Relative, [facility] Records Lives with: Spouse/Significant other Smoking Status: Former Smoker Electronic Cigarette use?: No Last Time Smoked: 40 years ago. Frequency of Alcohol Use: None Hx Recreational Drug Use: No Drugs: None Hx Prescription Drug Abuse: No - Advance Directive Resuscitation Status: Do Not Resuscitate Family History Family History: Other - Leukemia on his mother Parental Family History Reviewed: Yes Children Family History Reviewed: Yes Sibling(s) Family History Reviewed.: Unknown Medication/Allergy Home Medications: Acetaminophen [Tylenol 325 mg Tablet] 650 mg PO Q4HP PRN 06/01/19 Albuterol Sulfate [Proair Hfa Inhalation Aerosol 8.5 gm Mdi] 2 puff IH Q6HP PRN 06/01/19 Amlodipine Besylate [Norvasc 10 mg Tablet] 5 mg PO DAILY 06/01/19 Aspirin [Ecotrin 81 mg EC Tablet] 81 mg PO DAILY 06/01/19 Carboxymethylcellulose Sodium [Refresh Plus 0.5% Oph Soln 0.4 ml [place]] 1 drop OU BIDP PRN 06/01/19 Docusate Sodium [Colace 100 mg Capsule] 100 mg PO QHS 06/01/19 Fluticasone Propionate [Flonase Nasal Marcus 50 Mcg/Marcus 16 gm] 1 spray NASL Q12 06/01/19 Furosemide [Lasix 80 mg Tablet] 80 mg PO QAM 06/01/19 Glipizide [Glocotrol 5 Mg Tablet] 5 mg PO Q12 06/01/19 Hydralazine HCl [Apresoline 10 mg Tablet] 10 mg PO Q8 06/01/19 Multivitamin [Multiple Vitamins] 1 each PO DAILY 06/01/19 Petrolatum,White [Hydrophor] 1 applic TP BID 06/01/19 Simvastatin [Zocor 80 mg Tablet] 40 mg PO QHS 06/01/19 Sodium Chloride [[place] Nasal Marcus 44 ml Bottle] 1 spray NASL Q4HP PRN 06/01/19 Terazosin HCl [Hytrin] 2 mg PO QHS 06/01/19 Allergies/Adverse Reactions: ROSETTE Inhibitors Allergy (Unknown, Verified 06/01/19 16:10) Review of Systems All systems: reviewed and no additional remarkable complaints except as stated Review of Systems: Constitutional: ABSENT: chills, fatigue, fever(s), headache(s), weight loss; admits weight gain Eyes: ABSENT: visual disturbances Ears: ABSENT: hearing changes Cardiovascular: ABSENT: chest pain, orthropnea, palpitations; admits dyspnea at rest and exertion, admits edema Respiratory: ABSENT: cough, hemoptysis Gastrointestinal: ABSENT: abdominal pain, constipation, diarrhea, hematemesis, hematochezia, nausea, vomiting Genitourinary: ABSENT: dysuria, hematuria; reports decreased urine output Musculoskeletal: ABSENT: joint swelling Integumentary: ABSENT: rash, wounds Neurological: ABSENT: abnormal gait, abnormal speech, confusion, dizziness, focal weakness, numbness, syncope Psychiatric: ABSENT: anxiety, depression Endocrine: ABSENT: cold intolerance, heat intolerance, polydipsia, polyuria Hematologic/Lymphatic: ABSENT: easy bleeding, easy bruising, lymphadenopathy Physical Exam Vital Signs: Temp Pulse Resp BP Pulse Ox 97.6 F 93 22 H 128/64 H 95 06/02/19 11:16 06/02/19 14:39 06/02/19 11:16 06/02/19 14:39 06/02/19 11:16 Intake & Output 06/01/19 06/02/19 06/03/19 06:59 06:59 06:59 Intake Total 490 Output Total 1625 300 Balance -1625 190 Weight 224.3 kg 224.3 kg Exam: General appearance: Patient wearing his CPAP, cooperative, well-developed, well- nourished, morbidly obese Head exam: PRESENT: atraumatic, normocephalic Eye exam: PRESENT: Conjunctiva pale, EOMI, PERRLA. ABSENT: conjunctival injection, scleral icterus Mouth exam: PRESENT: moist, neck supple, tongue midline Neck exam: PRESENT: full ROM. ABSENT: carotid bruit, JVD, lymphadenopathy, thyromegaly Respiratory exam: PRESENT: Diminished to auscultation bilaterally. ABSENT: rales, rhonchi, stridor, wheezes Cardiovascular exam: PRESENT: RRR, +S1, +S2. ABSENT: systolic murmur Pulses: PRESENT: normal radial pulses, normal dorsalis pedis pulses GI/Abdominal exam: PRESENT: normal bowel sounds, soft. Obese with a significant pannus covering the pelvic area when is laying down, positive subcutaneous edema on his abdomen and his pannus ABSENT: guarding, mass, tenderness Rectal exam: Deferred Extremities exam: PRESENT: full ROM. Patient has anasarca with grade 4 bilateral lower extremity pitting edema with fluid blisters in bilateral upper extremity edema ABSENT: calf tenderness Musculoskeletal: PRESENT: full ROM. ABSENT: deformity Neurological exam: PRESENT: alert, Awake, Oriented to person, Oriented to place, Oriented to time, reflexes normal, CN II-XII grossly intact. ABSENT: motor sensory deficit Psychiatric exam: PRESENT: appropriate affect, normal mood. ABSENT: homicidal ideation, suicidal ideation Skin exam: PRESENT: intact, dry, warm. ABSENT: rash Results Laboratory Results: 06/02/19 04:51 06/02/19 04:51 06/01/19 06/02/19 06/02/19 16:24 04:51 04:51 WBC 4.6 RBC 3.17 L Hgb 9.3 L Hct 28.5 L MCV 90 MCH 29.4 MCHC 32.8 RDW 16.1 H Plt Count 152 Seg Neutrophils % 71.9 Sodium 144.0 Potassium 4.1 Chloride 105 Carbon Dioxide 27 Anion Gap 12 BUN 41 H Creatinine 2.03 H Est GFR ( Amer) 39 L Glucose 81 Calcium 9.2 Phosphorus 4.3 Magnesium 2.5 H Albumin 3.7 Urine Color YELLOW Urine Appearance CLEAR Urine pH 5.0 Ur Specific [place] 1.016 Urine Protein NEGATIVE Urine Glucose (UA) NEGATIVE Urine Ketones NEGATIVE Urine Blood NEGATIVE Urine Nitrite NEGATIVE Ur Leukocyte Esterase NEGATIVE Urine WBC (Auto) 0 Urine RBC (Auto) 0 06/01/19 06/01/19 13:25 13:25 Creatine Kinase 468 H Troponin I 0.014 NT-Pro-B Natriuret Pep 1980 H Impressions: Chest X-Ray 06/01/19 13:34 IMPRESSION: STABLE APPEARANCE. MILD CARDIOMEGALY. NO ACUTE RADIOGRAPHIC FINDING IN THE CHEST. Interventional Vascular Procedure 06/02/19 00:00 IMPRESSION: SUCCESSFUL PLACEMENT OF A 5 FR DUAL LUMEN 45 CM PICC IN THE LEFT BASILIC VEIN. PICC Line Insertion 06/02/19 10:45 IMPRESSION: SUCCESSFUL PLACEMENT OF A 5 FR DUAL LUMEN 45 CM PICC IN THE LEFT BASILIC VEIN. Assessment & Plan - Diagnosis (1) Acute on chronic systolic (congestive) heart failure Is this a current diagnosis for this admission?: Yes Plan: Patient was previously assessed by our grocery team member, Dr. Yeh during previous admission possibly have biventricular heart failure and possibly pulmonary hypertension. Echocardiogram done on 01/10/2019 was really limited to assess all this. Agree with dobutamine drip and current furosemide 40 mg IV ev winston 12 hours since he seems to be responding with good diuresis. We need to avoid overdiuresis due to his kidney function. Discussed with the patient and his at bedside that this is going to be a long-term problem and most likely will not be fixed within few days or few weeks and they probably need months if ever it will really improve due to the severity of his condition. I think a short-term goal for now is to at least relieve the shortness of breath so he can at least be somewhat functional but I do not think his issue can be resolved completely anytime soon. I told the the patient needs to be followed up closely by her grocery team member. His condition is really complicated and could deteriorate in time. (2) Acute kidney injury superimposed on CKD Is this a current diagnosis for this admission?: Yes Plan: No acute worsening of the patient's kidney function is most likely secondary to prerenal azotemia due to congestive heart failure. At this point I do not think we really know the appropriate baseline kidney function for this patient. As we treat the patient's congestive heart failure with diuresis we can expect either improvement or worsening of the kidney function. So far his kidney function seems to slightly improved from yesterday which is a good sign. I think a good determinant of the patient's baseline condition including kidney function would be the patient's clinical symptoms. Very cautious diuresis is probably better than a rapid diuresis not to impair the kidney function at this point. There is no indication for any renal replacement therapy at this time. I did explain to the patient and the the timing of requiring renal replacement therapy but this is not that time. Continue current furosemide 40 mg IV twice daily in association with the dobutamine drip. Monitor intake and output. Avoid nephrotoxic medications. Continue to monitor kidney function and electrolytes. (3) Anasarca Is this a current diagnosis for this admission?: Yes Plan: This is not going to be completely resolved during one admission. Realistically for as long as the patient can breathe a little bit better I think this needs to be treated indefinitely with adjustment of medications even as an outpatient and continues follow-up with a grocery team member and blade aligner. (4) Obstructive sleep apnea of adult Is this a current diagnosis for this admission?: Yes Plan: Continue CPAP. (5) Diabetes mellitus type 2 in obese Is this a current diagnosis for this admission?: Yes (6) Hypertension Qualifiers: Hypertension type: essential hypertension Qualified Code(s): I10 - Essential (primary) hypertension Is this a current diagnosis for this admission?: Yes (7) Anemia Is this a current diagnosis for this admission?: Yes Plan: Due to chronic illness and comorbidities including chronic kidney disease. (8) Morbid obesity with BMI of 70 and over, adult Is this a current diagnosis for this admission?: Yes - Notes Notes: Thank you very much for this consultation. Assessment and recommendations discussed with the patient and his . Also discussed the case with Dr. Inman. - Time Time Spent: Greater than 70 Minutes
[2019-06-02] MEDS: SIMVASTATIN 40 MG TABLET PO SCH (21:56)
[2019-06-02] MEDS: NORMAL SALINE 10 ML SDV (SCHEDULED) IV SCH (21:58)
[2019-06-02] MEDS: DOXAZOSIN MESYLATE 2 MG TABLET PO SCH (21:59)
[2019-06-03] MEDS: HYDRALAZINE HCL 10 MG TABLET PO SCH ×3 (05:55→21:25)
[2019-06-03] MEDS: HEPARIN SOD (PORCINE) 5,000 UNIT/ML 1 ML VIAL SUBCUT SCH ×3 (05:56→21:26)
[2019-06-03] MEDS: DOBUTAMINE HCL/D5W 500 MG/250 ML RTUINJ IV PRN ×2 (05:58→21:42)
[2019-06-03] MEDS: NORMAL SALINE 10 ML SDV (AFTER EACH USE) IV PRN (06:28)
[2019-06-03 07:12] LABS: ALBUMIN 3.7 g/dL (3.5-5.0); ANION GAP 10 (5-19); BLOOD UREA NITROGEN 38 mg/dL (7-20); CALCIUM 9.1 mg/dL (8.4-10.2); CARBON DIOXIDE 30 mmol/L (22-30); CHLORIDE 104 mmol/L (98-107); GLUCOSE 80 mg/dL (75-110); PHOSPHORUS 4.7 mg/dL (2.5-4.5); POTASSIUM 4.3 mmol/L (3.6-5.0)
[2019-06-03] MEDS: INSULIN LISPRO 100 UNIT/ML 3 ML VIAL SUBCUT SCH ×4 (07:54→21:37)
[2019-06-03] MEDS: DOCUSATE SODIUM 100 MG CAPSULE PO SCH ×2 (10:04→17:49)
[2019-06-03] MEDS: FUROSEMIDE INJ/PF 40 MG/4 ML SDV IV SCH ×2 (10:04→17:49)
[2019-06-03] MEDS: MULTIVITAMIN TABLET PO SCH (10:04)
[2019-06-03] MEDS: ASPIRIN 81 MG TABLET, ENT COATED PO SCH (10:04)
[2019-06-03] MEDS: GLIPIZIDE 5 MG TABLET PO SCH ×2 (10:05→21:27)
[2019-06-03] MEDS: FLUTICASONE NASAL SPRAY 50 MCG/SPRY 120 SPRAY/16 GM NASL SCH ×2 (10:05→21:24)
[2019-06-03] MEDS: NORMAL SALINE 10 ML SDV (SCHEDULED) IV SCH ×2 (10:06→21:37)
[2019-06-03] MEDS: PANTOT AC/MIN OIL/PET HY-PHL OINT 50 GM TOP SCH ×2 (10:06→17:50)
--- NOTE | 2019-06-03 11:17 | PDOC PROGRESS REPORT ---
Subjective Progress Note for:: 06/03/19 Subjective:: Patient states his breathing is similar to yesterday. Denies any chest pain. States that his left flank pain is still persisting but is often relieved by heating pad. Reason For Visit: ANASARCA Physical Exam Vital Signs: Temp Pulse Resp BP Pulse Ox 97.8 F 101 H 14 99/74 L 94 06/03/19 07:24 06/03/19 11:00 06/03/19 07:24 06/03/19 11:00 06/03/19 07:24 Intake & Output 06/02/19 06/03/19 06/04/19 06:59 06:59 06:59 Intake Total 1696 Output Total 1625 1175 Balance -1625 521 Weight 224.3 kg 246 kg General appearance: PRESENT: no acute distress, cooperative, morbidly obese Head exam: PRESENT: normocephalic Neck exam: PRESENT: other - Hard to appreciate JVD given morbid obesity Respiratory exam: PRESENT: decreased breath sounds, symmetrical, unlabored. ABSENT: tachypnea, wheezes Cardiovascular exam: PRESENT: RRR, +S1, +S2. ABSENT: irregular rhythm GI/Abdominal exam: PRESENT: normal bowel sounds, soft. ABSENT: rebound, rigid, tenderness Neurological exam: PRESENT: alert, awake Results Laboratory Results: 06/02/19 04:51 06/03/19 06:30 06/03/19 06:30 Sodium 143.6 Potassium 4.3 Chloride 104 Carbon Dioxide 30 Anion Gap 10 BUN 38 H Creatinine 2.08 H Est GFR ( Amer) 38 L Glucose 80 Calcium 9.1 Phosphorus 4.7 H Albumin 3.7 06/01/19 06/01/19 13:25 13:25 Creatine Kinase 468 H Troponin I 0.014 NT-Pro-B Natriuret Pep 1980 H Impressions: Chest X-Ray 06/01/19 13:34 IMPRESSION: STABLE APPEARANCE. MILD CARDIOMEGALY. NO ACUTE RADIOGRAPHIC FINDING IN THE CHEST. Interventional Vascular Procedure 06/02/19 00:00 IMPRESSION: SUCCESSFUL PLACEMENT OF A 5 FR x 45 CM DOUBLE LUMEN PICC VIA THE LEFT BASILIC VEIN UTILIZING SONOGRAPHIC GUIDANCE. PICC Line Insertion 06/02/19 10:45 IMPRESSION: SUCCESSFUL PLACEMENT OF A 5 FR x 45 CM DOUBLE LUMEN PICC VIA THE LEFT BASILIC VEIN UTILIZING SONOGRAPHIC GUIDANCE. Assessment and Plan - Diagnosis (1) Acute on chronic systolic (congestive) heart failure Is this a current diagnosis for this admission?: Yes Plan: 06/01/2019-we will place on dobutamine and continue furosemide. Monitor renal function and electrolytes. Monitor vital signs on dobutamine. 06/02/2019-the patient is tolerating dobutamine. He has increased urine output. There is noticeable decrease in swelling in his hands. Continue dobutamine at this time. 06/03/2018-patient had good urinary output yesterday with the dobutamine which is helping to improve forward flow. We will continue with dobutamine and Lasix IV at this point. Will monitor blood pressures. (2) Acute kidney injury superimposed on CKD Is this a current diagnosis for this admission?: Yes Plan: 06/01/2019-creatinine is higher than baseline. Likely due to exacerbation of congestive heart failure. Plan as above 06/02/2019-nephrology will be seeing the patient. The asked about hemodialysis. This would be an extremely difficult hemodialysis patient and in fact I do not think he would do well on dialysis. I did tell the patient that we would need to go slowly and see how he responds to treatment. Nephrology will be seeing the patient as well. 06/03/2019-nephrology following. We will continue IV diuresis and dobutamine for now. Creatinine about the same as yesterday but urine output is good. (3) Acute respiratory failure with hypoxia Is this a current diagnosis for this admission?: Yes Plan: 06/01/2019-supplement oxygen to keep saturation 90 to 94% respiratory failure d ue to congestive heart failure and super morbid obesity 06/02/2019-continue oxygen supplementation. At this point he agrees mouth asleep by his BiPAP. (4) Anasarca Is this a current diagnosis for this admission?: Yes Plan: 06/01/2019-due to a combination of his congestive heart failure and chronic kidney disease. Serum albumin is normal therefore IV albumin will not help. Continue diuretic regimen 06/02/2019-slowly improving. Progress will be very slow. 06/03/2018-continue plan as above (5) Obesity hypoventilation syndrome Is this a current diagnosis for this admission?: Yes Plan: 06/02/2019-the patient clearly has obesity hypoventilation syndrome complicating his already complex comorbidities. At this point he would not even be a surgical candidate for weight loss. This gives him an extremely poor prognosis. 06/03/2019-continue with NIPPV (6) Diabetes mellitus type 2 in obese Is this a current diagnosis for this admission?: Yes Plan: 06/01/2019-continue baseline oral medication and Accu-Cheks with meals and at bedtime. Sliding scale available. 06/02/2019-continue Accu-Cheks as well as sliding scale insulin in addition to his glipizide - Plan Summary Summary: Patient with recent admission in December. Long-term management should include consideration of bariatric surgery. 06/02/2019-after further discussion with the patient and his , the bariatric surgical intervention is not a possibility. I had a chance to talk to the patient's outside of the room. She expressed her frustration. She also expressed the patient's frustration. I did tell her that in all honestly I did not feel the patient would do well. In fact I thought he might get short-term relief from this intervention but he would only be back in the hospital and it would be likely that the windows between periods of decompensation would be getting shorter and shorter. Because I do not think he will make a meaningful recovery and that his condition will only progressively worsen I strongly suggested that the patient and his obtain a palliative care consult. I urged her to consider hospice care at this time. She expressed concern that if this was brought up her would think that she did not love him or care about him. He might think that she wants to get rid of them. I strongly reinforced the fact that after 50 years of marriage it is extremely unlikely that the patient would think that way especially considering all that she sacrifices for the patient. We discussed the fact that the patient is scared but has an underlying suspicion as to the extremely poor prognosis. I have placed a consult for palliative care/hospice. - Time Time Spent with patient: 15-24 minutes
[2019-06-03] MEDS: AMLODIPINE BESYLATE 10 MG TABLET PO SCH (14:44)
[2019-06-03] MEDS ORDERED: POLYETHYLENE GLYCOL 3350 POWDER 17 GM/1 PACKET PO ONE (17:45)
[2019-06-03] MEDS: SIMVASTATIN 40 MG TABLET PO SCH (21:25)
[2019-06-03] MEDS: DOXAZOSIN MESYLATE 2 MG TABLET PO SCH (21:26)
[2019-06-04] MEDS: HYDRALAZINE HCL 10 MG TABLET PO SCH ×3 (06:02→22:35)
[2019-06-04] MEDS: HEPARIN SOD (PORCINE) 5,000 UNIT/ML 1 ML VIAL SUBCUT SCH ×2 (06:03→14:49)
[2019-06-04 06:33] LABS: ABSOLUTE BASOPHILS # (AUTO) 0.1 10^3/uL (0.0-0.2); ABSOLUTE EOSINOPHILS # (AUTO) 0.3 10^3/uL (0.0-0.6); ABSOLUTE LYMPHOCYTES (AUTO) 0.4 10^3/uL (0.5-4.7); ABSOLUTE MONOCYTES (AUTO) 0.7 10^3/uL (0.1-1.4); ABSOLUTE NEUT (AUTO) 3.4 10^3/uL (1.7-8.2); BASOPHILS % (AUTO) 1.5 % (0-2); EOSINOPHILS % (AUTO) 5.7 % (0-6); HEMATOCRIT 27.4 % (37.9-51.0); LYMPHOCYTES % (AUTO) 7.6 % (13-45); MEAN CORPUSCULAR HEMOGLOBIN 29.6 pg (27.0-33.4); MEAN CORPUSCULAR HGB CONC 32.8 g/dL (32.0-36.0); MEAN CORPUSCULAR VOLUME 91 fl (80-97); MONOCYTES % (AUTO) 15.4 % (3-13); PLATELET COUNT 157 10^3/uL (150-450); RED BLOOD COUNT 3.02 10^6/uL (4.35-5.55); RED CELL DISTRIBUTION WIDTH 16.5 % (11.5-14.0); SEGMENTED NEUTROPHILS % (AUTO) 69.8 % (42-78); TOTAL CELLS COUNTED % (AUTO) 100 %; WHITE BLOOD COUNT 4.8 10^3/uL (4.0-10.5)
[2019-06-04 06:46] LABS: ANION GAP 11 (5-19); BLOOD UREA NITROGEN 38 mg/dL (7-20); CALCIUM 9.1 mg/dL (8.4-10.2); CARBON DIOXIDE 28 mmol/L (22-30); CHLORIDE 104 mmol/L (98-107); GLUCOSE 80 mg/dL (75-110); POTASSIUM 4.3 mmol/L (3.6-5.0)
[2019-06-04] MEDS: INSULIN LISPRO 100 UNIT/ML 3 ML VIAL SUBCUT SCH ×4 (08:10→22:29)
[2019-06-04] MEDS: DOCUSATE SODIUM 100 MG CAPSULE PO SCH ×2 (09:41→18:29)
[2019-06-04] MEDS: AMLODIPINE BESYLATE 10 MG TABLET PO SCH (09:42)
[2019-06-04] MEDS: ASPIRIN 81 MG TABLET, ENT COATED PO SCH (09:42)
[2019-06-04] MEDS: POLYETHYLENE GLYCOL 3350 POWDER 17 GM/1 PACKET PO SCH (09:42)
[2019-06-04] MEDS: MULTIVITAMIN TABLET PO SCH (09:48)
[2019-06-04] MEDS: GLIPIZIDE 5 MG TABLET PO SCH ×2 (09:48→22:35)
[2019-06-04] MEDS: FUROSEMIDE INJ/PF 40 MG/4 ML SDV IV SCH ×2 (09:49→18:29)
[2019-06-04] MEDS: NORMAL SALINE 10 ML SDV (SCHEDULED) IV SCH ×2 (09:51→22:34)
[2019-06-04] MEDS: FLUTICASONE NASAL SPRAY 50 MCG/SPRY 120 SPRAY/16 GM NASL SCH ×2 (10:30→22:35)
[2019-06-04] MEDS: PANTOT AC/MIN OIL/PET HY-PHL OINT 50 GM TOP SCH ×2 (10:30→18:23)
[2019-06-04] MEDS: DOBUTAMINE HCL/D5W 500 MG/250 ML RTUINJ IV PRN (11:19)
--- NOTE | 2019-06-04 14:58 | PDOC PROGRESS REPORT ---
Subjective Progress Note for:: 06/04/19 Subjective:: No adverse events overnight. Even when he is awake he spends a lot of time on his CPAP because it helps him breathe better. Based on the ins and outs would have been documented, he is not in that much of a negative fluid balance, if at all. At says on his medication reconciliation that he takes 80 mg Lasix once a day but he told me that at home he takes it twice a day, and that he takes 160 mg a day total. Reason For Visit: ANASARCA Physical Exam Vital Signs: Temp Pulse Resp BP Pulse Ox 97.4 F 96 17 134/47 H 97 06/04/19 11:36 06/04/19 11:36 06/04/19 11:36 06/04/19 11:36 06/04/19 11:36 Intake & Output 06/03/19 06/04/19 06/05/19 06:59 06:59 06:59 Intake Total 1696 1042 950 Output Total 1175 1693 500 Balance 521 -651 450 Weight 246 kg 245.847 kg General appearance: PRESENT: no acute distress, cooperative, disheveled, morbidly obese Respiratory exam: PRESENT: decreased breath sounds, symmetrical, unlabored. ABSENT: accessory muscle use, chest wall tenderness, prolonged expiratory phas, rhonchi, tachypnea, wheezes Cardiovascular exam: PRESENT: RRR, +S1, +S2 Vascular exam: PRESENT: normal capillary refill GI/Abdominal exam: PRESENT: normal bowel sounds, soft. ABSENT: diminished bowel sounds, guarding, rebound, tenderness Extremities exam: PRESENT: pedal edema, +2 edema. ABSENT: clubbing Musculoskeletal exam: PRESENT: normal inspection. ABSENT: deformity Neurological exam: PRESENT: alert, awake, oriented to person, oriented to place, oriented to situation Psychiatric exam: PRESENT: appropriate affect, normal mood Skin exam: PRESENT: dry, warm, other - He has some blisters on the anterior shins associated with fluid overload and some cool erythema associated with long-standing chronic venous insufficiency Results Laboratory Results: 06/04/19 06:08 06/04/19 06:08 06/04/19 06/04/19 06:08 06:08 WBC 4.8 RBC 3.02 L Hgb 9.0 L Hct 27.4 L MCV 91 MCH 29.6 MCHC 32.8 RDW 16.5 H Plt Count 157 Seg Neutrophils % 69.8 Sodium 143.3 Potassium 4.3 Chloride 104 Carbon Dioxide 28 Anion Gap 11 BUN 38 H Creatinine 1.90 H Est GFR ( Amer) 42 L Glucose 80 Calcium 9.1 06/01/19 06/01/19 13:25 13:25 Creatine Kinase 468 H Troponin I 0.014 NT-Pro-B Natriuret Pep 1980 H Impressions: Chest X-Ray 06/01/19 13:34 IMPRESSION: STABLE APPEARANCE. MILD CARDIOMEGALY. NO ACUTE RADIOGRAPHIC FINDING IN THE CHEST. Interventional Vascular Procedure 06/02/19 00:00 IMPRESSION: SUCCESSFUL PLACEMENT OF A 5 FR x 45 CM DOUBLE LUMEN PICC VIA THE LEFT BASILIC VEIN UTILIZING SONOGRAPHIC GUIDANCE. PICC Line Insertion 06/02/19 10:45 IMPRESSION: SUCCESSFUL PLACEMENT OF A 5 FR x 45 CM DOUBLE LUMEN PICC VIA THE LEFT BASILIC VEIN UTILIZING SONOGRAPHIC GUIDANCE. Assessment and Plan - Diagnosis (1) Acute respiratory failure with hypoxia Is this a current diagnosis for this admission?: Yes Plan: He already has obesity hypoventilation syndrome along with obstructive sleep apnea, now with diffuse anasarca. Continue supplemental O2 to maintain SPO2 greater than 90%. (2) Anasarca Is this a current diagnosis for this admission?: Yes Plan: Due at least in some part to chronic kidney disease as well as suspected pulmonary hypertension with right heart failure and acute cor pulmonale. Currently on a dobutamine drip with Lasix. He had this same type of treatment before back in December of this year with success. His echocardiogram was done at that time was not very good because of his body habitus, but it looked like his EF was around 55%, but his right ventricle could not be visualized. I increased his IV Lasix today. (3) Morbid obesity with BMI of 70 and over, adult Is this a current diagnosis for this admission?: Yes Plan: Strongly encouraged lifestyle modification (4) Obesity hypoventilation syndrome Is this a current diagnosis for this admission?: Yes Plan: Continue with CPAP as needed (5) Obstructive sleep apnea of adult Is this a current diagnosis for this admission?: Yes Plan: He should always use his CPAP at bedtime (6) Acute kidney injury superimposed on CKD Is this a current diagnosis for this admission?: Yes Plan: Creatinine is actually improved with dobutamine and Lasix - Plan Summary Summary: Patient with recent admission in December. Long-term management should include consideration of bariatric surgery. 06/02/2019-after further discussion with the patient and his , the bariatric surgical intervention is not a possibility. I had a chance to talk to the patient's outside of the room. She expressed her frustration. She also expressed the patient's frustration. I did tell her that in all honestly I did not feel the patient would do well. In fact I thought he might get short-term relief from this intervention but he would only be back in the hospital and it would be likely that the windows between periods of decompensation would be getting shorter and shorter. Because I do not think he will make a meaningful recovery and that his condition will only progressively worsen I strongly suggested that the patient and his obtain a palliative care consult. I urged her to consider hospice care at this time. She expressed concern that if this was brought up her would think that she did not love him or care about him. He might think that she wants to get rid of them. I strongly reinforced the fact that after 50 years of marriage it is extremely unlikely that the patient would think that way especially considering all that she sacrifices for the patient. We discussed the fact that the patient is scared but has an underlying suspicion as to the extremely poor prognosis. I have placed a consult for palliative care/hospice. - Time Time Spent with patient: 25-34 minutes
[2019-06-04] MEDS: NORMAL SALINE 10 ML SDV (AFTER EACH USE) IV PRN (18:30)
[2019-06-04] MEDS: SIMVASTATIN 40 MG TABLET PO SCH (22:35)
[2019-06-04] MEDS: DOXAZOSIN MESYLATE 2 MG TABLET PO SCH (22:39)
[2019-06-04] MEDS: OXYCODONE HCL IR 5 MG TABLET PO PRN (22:42)
[2019-06-05] MEDS: HEPARIN SOD (PORCINE) 5,000 UNIT/ML 1 ML VIAL SUBCUT SCH ×4 (00:01→22:12)
[2019-06-05] MEDS: DOBUTAMINE HCL/D5W 500 MG/250 ML RTUINJ IV PRN ×2 (02:09→15:49)
[2019-06-05] MEDS: HYDRALAZINE HCL 10 MG TABLET PO SCH ×3 (05:38→22:14)
[2019-06-05] MEDS: AMLODIPINE BESYLATE 10 MG TABLET PO SCH (09:44)
[2019-06-05] MEDS: ASPIRIN 81 MG TABLET, ENT COATED PO SCH (09:44)
[2019-06-05] MEDS: DOCUSATE SODIUM 100 MG CAPSULE PO SCH ×2 (09:46→17:37)
[2019-06-05] MEDS: MULTIVITAMIN TABLET PO SCH (09:46)
[2019-06-05] MEDS: FUROSEMIDE INJ/PF 40 MG/4 ML SDV IV SCH (09:47)
[2019-06-05] MEDS: PANTOT AC/MIN OIL/PET HY-PHL OINT 50 GM TOP SCH ×2 (09:49→18:13)
[2019-06-05] MEDS: NORMAL SALINE 10 ML SDV (SCHEDULED) IV SCH ×2 (09:49→22:16)
[2019-06-05] MEDS: POLYETHYLENE GLYCOL 3350 POWDER 17 GM/1 PACKET PO SCH ×2 (09:49→12:22)
[2019-06-05] MEDS: FLUTICASONE NASAL SPRAY 50 MCG/SPRY 120 SPRAY/16 GM NASL SCH ×2 (10:04→22:15)
[2019-06-05] MEDS: INSULIN LISPRO 100 UNIT/ML 3 ML VIAL SUBCUT SCH ×4 (10:05→22:11)
[2019-06-05] MEDS: GLIPIZIDE 5 MG TABLET PO SCH ×2 (10:11→22:13)
--- NOTE | 2019-06-05 10:17 | PDOC PROGRESS REPORT ---
Subjective Progress Note for:: 06/05/19 Subjective:: Patient says he still feels short of breath. He is being diuresed very cautiously which seems to be associated with slow minimal clinical improvement in terms of swelling and anasarca. Patient has been counseled by the hospitalist regarding diet and option for palliative care. The representatives from the palliative care has not talked to the patient and yet. Reason For Visit: ANASARCA Physical Exam Vital Signs: Temp Pulse Resp BP Pulse Ox 98.3 F 94 17 155/57 H 94 06/05/19 07:17 06/05/19 08:09 06/05/19 07:17 06/05/19 08:09 06/05/19 07:17 Intake & Output 06/04/19 06/05/19 06/06/19 06:59 06:59 06:59 Intake Total 1042 1600 Output Total 1693 2125 Balance -651 -525 Weight 245.847 kg 246.754 kg Exam: General appearance: PRESENT: no acute distress, cooperative, well-developed, well-nourished, morbidly obese Head exam: PRESENT: atraumatic, normocephalic Eye exam: PRESENT: conjunctiva pale, PERRLA. ABSENT: scleral icterus Neck exam: ABSENT: JVD Respiratory exam: PRESENT: Diminished breath sounds. ABSENT: crackles, rales, rhonchi, unlabored, wheezes Cardiovascular exam: PRESENT: Regular rate rhythm -+S1, +S2. ABSENT: diastolic murmur, systolic murmur GI/Abdominal exam: PRESENT: normal bowel sounds, soft. ABSENT: guarding, mass, tenderness Extremities exam: Grade 3 bilateral lower extremity edema and upper extremity edema which seems to have minimal improvement Neurological exam: PRESENT: alert, awake, oriented to person, place and time. Skin exam: PRESENT: dry, warm, Results Laboratory Results: 06/04/19 06:08 06/04/19 06:08 06/01/19 06/01/19 13:25 13:25 Creatine Kinase 468 H Troponin I 0.014 NT-Pro-B Natriuret Pep 1980 H Impressions: Chest X-Ray 06/01/19 13:34 IMPRESSION: STABLE APPEARANCE. MILD CARDIOMEGALY. NO ACUTE RADIOGRAPHIC FINDING IN THE CHEST. Interventional Vascular Procedure 06/02/19 00:00 IMPRESSION: SUCCESSFUL PLACEMENT OF A 5 FR x 45 CM DOUBLE LUMEN PICC VIA THE LEFT BASILIC VEIN UTILIZING SONOGRAPHIC GUIDANCE. PICC Line Insertion 06/02/19 10:45 IMPRESSION: SUCCESSFUL PLACEMENT OF A 5 FR x 45 CM DOUBLE LUMEN PICC VIA THE LEFT BASILIC VEIN UTILIZING SONOGRAPHIC GUIDANCE. Assessment & Plan - Diagnosis (1) Acute on chronic systolic (congestive) heart failure Is this a current diagnosis for this admission?: Yes Plan: Possibly biventricular with pulmonary hypertension. Patient currently on dobutamine drip and IV Lasix. Continue same. (2) Acute kidney injury superimposed on CKD Is this a current diagnosis for this admission?: Yes Plan: Secondary to prerenal factors including congestive heart failure. Kidney fu nction is actually minimally improved. Continue current management. (3) Anasarca Is this a current diagnosis for this admission?: Yes Plan: There is some minimal improvement of swelling but as I have mentioned in the past this will not be resolved anytime soon. This needs to be treated for long- term cautiously. (4) Obstructive sleep apnea of adult Is this a current diagnosis for this admission?: Yes (5) Diabetes mellitus type 2 in obese Is this a current diagnosis for this admission?: Yes (6) Hypertension Qualifiers: Hypertension type: essential hypertension Qualified Code(s): I10 - Essential (primary) hypertension Is this a current diagnosis for this admission?: Yes Plan: Adequate control for now. (7) Anemia Is this a current diagnosis for this admission?: Yes Plan: Chronic kidney disease is contributory. We will check iron panel. (8) Morbid obesity with BMI of 70 and over, adult Is this a current diagnosis for this admission?: Yes Plan: Patient has been counseled regarding importance of weight loss. - Notes Notes: Patient and updated. Discussed with Dr. Castaneda. - Time Time with patient: 15-25 minutes
[2019-06-05 13:31] LABS: ANION GAP 9 (5-19); BLOOD UREA NITROGEN 33 mg/dL (7-20); CARBON DIOXIDE 32 mmol/L (22-30); CHLORIDE 100 mmol/L (98-107); GLUCOSE 105 mg/dL (75-110); POTASSIUM 4.1 mmol/L (3.6-5.0)
--- NOTE | 2019-06-05 14:31 | PDOC PROGRESS REPORT ---
Subjective Progress Note for:: 06/05/19 Subjective:: No adverse events overnight. No new complaints. He says he feels a little less swollen than yesterday. He says that constantly using his CPAP is drying out his nasal membranes. Reason For Visit: ANASARCA Physical Exam Vital Signs: Temp Pulse Resp BP Pulse Ox 97.4 F 95 17 166/63 H 95 06/05/19 11:13 06/05/19 13:00 06/05/19 11:13 06/05/19 13:00 06/05/19 11:13 Intake & Output 06/04/19 06/05/19 06/06/19 06:59 06:59 06:59 Intake Total 1042 1600 320 Output Total 1693 2125 1000 Balance -715 -294 -651 Weight 245.847 kg 246.754 kg General appearance: PRESENT: no acute distress, cooperative, disheveled, mor bidly obese Respiratory exam: PRESENT: decreased breath sounds, symmetrical, unlabored. ABSENT: accessory muscle use, chest wall tenderness, prolonged expiratory phas, rhonchi, tachypnea, wheezes Cardiovascular exam: PRESENT: RRR, +S1, +S2 Vascular exam: PRESENT: normal capillary refill GI/Abdominal exam: PRESENT: normal bowel sounds, soft. ABSENT: diminished bowel sounds, guarding, rebound, tenderness Extremities exam: PRESENT: pedal edema, +2 edema. ABSENT: clubbing Musculoskeletal exam: PRESENT: normal inspection. ABSENT: deformity Neurological exam: PRESENT: alert, awake, oriented to person, oriented to place, oriented to situation Psychiatric exam: PRESENT: appropriate affect, normal mood Skin exam: PRESENT: dry, warm, other - He has some blisters on the anterior shins associated with fluid overload and some cool erythema associated with long-standing chronic venous insufficiency Results Laboratory Results: 06/04/19 06:08 06/05/19 12:40 06/05/19 12:40 Sodium 140.5 Potassium 4.1 Chloride 100 Carbon Dioxide 32 H Anion Gap 9 BUN 33 H Creatinine 1.88 H Est GFR ( Amer) 43 L Glucose 105 Calcium 9.0 06/01/19 06/01/19 13:25 13:25 Creatine Kinase 468 H Troponin I 0.014 NT-Pro-B Natriuret Pep 1980 H Impressions: Chest X-Ray 06/01/19 13:34 IMPRESSION: STABLE APPEARANCE. MILD CARDIOMEGALY. NO ACUTE RADIOGRAPHIC FINDING IN THE CHEST. Interventional Vascular Procedure 06/02/19 00:00 IMPRESSION: SUCCESSFUL PLACEMENT OF A 5 FR x 45 CM DOUBLE LUMEN PICC VIA THE LEFT BASILIC VEIN UTILIZING SONOGRAPHIC GUIDANCE. PICC Line Insertion 06/02/19 10:45 IMPRESSION: SUCCESSFUL PLACEMENT OF A 5 FR x 45 CM DOUBLE LUMEN PICC VIA THE LEFT BASILIC VEIN UTILIZING SONOGRAPHIC GUIDANCE. Assessment and Plan - Diagnosis (1) Acute respiratory failure with hypoxia Is this a current diagnosis for this admission?: Yes Plan: He already has obesity hypoventilation syndrome along with obstructive sleep apnea, now with diffuse anasarca. Continue supplemental O2 to maintain SPO2 greater than 90%. (2) Anasarca Is this a current diagnosis for this admission?: Yes Plan: Due at least in some part to chronic kidney disease as well as suspected pulmonary hypertension with right heart failure and acute cor pulmonale. Currently on a dobutamine drip with Lasix. He had this same type of treatment before back in December of this year with success. His echocardiogram was done at that time was not very good because of his body habitus, but it looked like his EF was around 55%, but his right ventricle could not be visualized. I increased his IV Lasix and he has had a better urine output as a result. We will continue with this treatment until he shows signs of no longer responding. (3) Morbid obesity with BMI of 70 and over, adult Is this a current diagnosis for this admission?: Yes Plan: Strongly encouraged lifestyle modification (4) Obesity hypoventilation syndrome Is this a current diagnosis for this admission?: Yes Plan: Continue with CPAP as needed (5) Obstructive sleep apnea of adult Is this a current diagnosis for this admission?: Yes Plan: He should always use his CPAP at bedtime (6) Acute kidney injury superimposed on CKD Is this a current diagnosis for this admission?: Yes Plan: Creatinine is actually improved with dobutamine and Lasix - Plan Summary Summary: Patient with recent admission in December. Long-term management should include consideration of bariatric surgery. 06/02/2019-after further discussion with the patient and his , the bariatric surgical intervention is not a possibility. I had a chance to talk to the fernando fisher's outside of the room. She expressed her frustration. She also expressed the patient's frustration. I did tell her that in all honestly I did not feel the patient would do well. In fact I thought he might get short-term relief from this intervention but he would only be back in the hospital and it would be likely that the windows between periods of decompensation would be getting shorter and shorter. Because I do not think he will make a meaningful recovery and that his condition will only progressively worsen I strongly suggested that the patient and his obtain a palliative care consult. I urged her to consider hospice care at this time. She expressed concern that if this was brought up her would think that she did not love him or care about him. He might think that she wants to get rid of them. I strongly reinforced the fact that after 50 years of marriage it is extremely unlikely that the patient would think that way especially considering all that she sacrifices for the patient. We discussed the fact that the patient is scared but has an underlying suspicion as to the extremely poor prognosis. I have placed a consult for palliative care/hospice. - Time Time Spent with patient: 15-24 minutes
[2019-06-05] MEDS: FUROSEMIDE INJ/PF 100 MG/10 ML SDV IV SCH (17:36)
[2019-06-05] MEDS: SIMVASTATIN 40 MG TABLET PO SCH (22:13)
[2019-06-05] MEDS: DOXAZOSIN MESYLATE 2 MG TABLET PO SCH (22:15)
[2019-06-06] MEDS: HEPARIN SOD (PORCINE) 5,000 UNIT/ML 1 ML VIAL SUBCUT SCH ×3 (05:28→21:06)
[2019-06-06] MEDS: FUROSEMIDE INJ/PF 100 MG/10 ML SDV IV SCH ×2 (05:28→17:06)
[2019-06-06] MEDS: DOBUTAMINE HCL/D5W 500 MG/250 ML RTUINJ IV PRN ×2 (05:28→19:14)
[2019-06-06] MEDS: HYDRALAZINE HCL 10 MG TABLET PO SCH (05:28)
[2019-06-06] MEDS: NORMAL SALINE 10 ML SDV (AFTER EACH USE) IV PRN (05:29)
[2019-06-06 06:43] LABS: ABSOLUTE RETICS # 0.044 10^6/uL (0.028-0.122); HEMATOCRIT 27.3 % (37.9-51.0); MEAN CORPUSCULAR HEMOGLOBIN 29.8 pg (27.0-33.4); MEAN CORPUSCULAR VOLUME 90 fl (80-97); PLATELET COUNT 160 10^3/uL (150-450); RED BLOOD COUNT 3.03 10^6/uL (4.35-5.55); RED CELL DISTRIBUTION WIDTH 16.5 % (11.5-14.0); RETICULOCYTE COUNT (AUTO) 1.46 % (0.66-2.85); WHITE BLOOD COUNT 4.5 10^3/uL (4.0-10.5)
[2019-06-06 07:00] LABS: IRON(TIBC) 22.8 ug/dL (49-181)
[2019-06-06] MEDS: INSULIN LISPRO 100 UNIT/ML 3 ML VIAL SUBCUT SCH ×4 (08:07→21:08)
[2019-06-06] MEDS: FLUTICASONE NASAL SPRAY 50 MCG/SPRY 120 SPRAY/16 GM NASL SCH ×2 (09:47→21:12)
[2019-06-06] MEDS: POLYETHYLENE GLYCOL 3350 POWDER 17 GM/1 PACKET PO SCH (09:47)
[2019-06-06] MEDS: PANTOT AC/MIN OIL/PET HY-PHL OINT 50 GM TOP SCH ×2 (09:47→17:06)
[2019-06-06] MEDS: NORMAL SALINE 10 ML SDV (SCHEDULED) IV SCH ×2 (09:48→21:13)
[2019-06-06] MEDS: MULTIVITAMIN TABLET PO SCH (09:48)
[2019-06-06] MEDS: GLIPIZIDE 5 MG TABLET PO SCH ×2 (09:48→21:06)
[2019-06-06] MEDS: DOCUSATE SODIUM 100 MG CAPSULE PO SCH ×2 (09:48→17:06)
[2019-06-06] MEDS: ASPIRIN 81 MG TABLET, ENT COATED PO SCH (09:48)
[2019-06-06] MEDS: AMLODIPINE BESYLATE 5 MG TABLET PO SCH (10:21)
--- NOTE | 2019-06-06 10:47 | PDOC PROGRESS REPORT ---
Subjective Progress Note for:: 06/06/19 Subjective:: Patient continues to feel the same. He still feels short of breath. He is making a good amount of urine output with current dose of Lasix and dobutamine drip. They were able to talk to the palliative care team yesterday. indicates that they prefer the home hospice to avail of all the services at home. I presented him the idea of acute long-term care facility but because it is not locally available here the patient's prefer the home hospice care so that she can be around him. Reason For Visit: ANASARCA Physical Exam Vital Signs: Temp Pulse Resp BP Pulse Ox 98.2 F 96 17 103/88 H 93 06/06/19 07:58 06/06/19 10:00 06/06/19 07:58 06/06/19 10:00 06/06/19 07:58 Intake & Output 06/05/19 06/06/19 06/07/19 06:59 06:59 06:59 Intake Total 1600 1200 Output Total 2125 3000 Balance -525 -1800 Weight 246.754 kg Exam: General appearance: PRESENT: no acute distress, cooperative, morbidly obese Head exam: PRESENT: atraumatic, normocephalic Eye exam: PRESENT: conjunctiva pale, PERRLA. ABSENT: scleral icterus Neck exam: ABSENT: JVD Respiratory exam: PRESENT: Diminished breath sounds. ABSENT: crackles, rales, rhonchi, unlabored, wheezes Cardiovascular exam: PRESENT: Regular rate rhythm -+S1, +S2. ABSENT: diastolic murmur, systolic murmur GI/Abdominal exam: PRESENT: normal bowel sounds, soft. ABSENT: guarding, mass, tenderness Extremities exam: Positive anasarca with slight improvement in bilateral grade 2 bilateral lower extremity edema and upper extremity swelling Neurological exam: PRESENT: alert, awake, oriented to person, place and time. Skin exam: PRESENT: dry, warm, Results Laboratory Results: 06/06/19 05:37 06/05/19 12:40 06/05/19 06/06/19 06/06/19 12:40 05:37 05:37 WBC 4.5 RBC 3.03 L Hgb 9.0 L Hct 27.3 L MCV 90 MCH 29.8 MCHC 33.0 RDW 16.5 H Plt Count 160 Retic Count (auto) 1.46 Sodium 140.5 Potassium 4.1 Chloride 100 Carbon Dioxide 32 H Anion Gap 9 BUN 33 H Creatinine 1.88 H Est GFR ( Amer) 43 L Glucose 105 Calcium 9.0 Iron 22.8 L TIBC 299 % Saturation 8 Ferritin 52.10 Vitamin B12 432.0 Folate 12.50 06/01/19 06/01/19 13:25 13:25 Creatine Kinase 468 H Troponin I 0.014 NT-Pro-B Natriuret Pep 1980 H Impressions: Chest X-Ray 06/01/19 13:34 IMPRESSION: STABLE APPEARANCE. MILD CARDIOMEGALY. NO ACUTE RADIOGRAPHIC FINDING IN THE CHEST. Interventional Vascular Procedure 06/02/19 00:00 IMPRESSION: SUCCESSFUL PLACEMENT OF A 5 FR x 45 CM DOUBLE LUMEN PICC VIA THE LEFT BASILIC VEIN UTILIZING SONOGRAPHIC GUIDANCE. PICC Line Insertion 06/02/19 10:45 IMPRESSION: SUCCESSFUL PLACEMENT OF A 5 FR x 45 CM DOUBLE LUMEN PICC VIA THE LEFT BASILIC VEIN UTILIZING SONOGRAPHIC GUIDANCE. Assessment & Plan - Diagnosis (1) Acute on chronic systolic (congestive) heart failure Is this a current diagnosis for this admission?: Yes Plan: Possibly biventricular with pulmonary hypertension. Patient currently on dobutamine drip and IV Lasix. Continue same. Patient and are considering hospice care seriously. This might actually be appropriate in patient's condition. (2) Acute kidney injury superimposed on CKD Is this a current diagnosis for this admission?: Yes Plan: Secondary to prerenal factors including congestive heart failure. Kidney function is actually minimally improved. Continue current management. (3) Anasarca Is this a current diagnosis for this admission?: Yes Plan: There is some minimal improvement of swelling but as I have mentioned in the past this will not be resolved anytime soon. This needs to be treated for long- term cautiously. (4) Obstructive sleep apnea of adult Is this a current diagnosis for this admission?: Yes (5) Diabetes mellitus type 2 in obese Is this a current diagnosis for this admission?: Yes (6) Hypertension Qualifiers: Hypertension type: essential hypertension Qualified Code(s): I10 - Esse ntial (primary) hypertension Is this a current diagnosis for this admission?: Yes Plan: Adequate control for now. (7) Anemia Is this a current diagnosis for this admission?: Yes Plan: Chronic kidney disease is contributory. He also has iron deficiency. We will give him IV Injectafer x1 dose today. He might also need Procrit after correction of iron. (8) Morbid obesity with BMI of 70 and over, adult Is this a current diagnosis for this admission?: Yes - Time Time with patient: 15-25 minutes
[2019-06-06] MEDS ORDERED: FERRIC CARBOXYMALTOSE 750 MG in NORMAL SALINE 100 ML IV ONE (12:00)
--- NOTE | 2019-06-06 15:16 | PDOC PROGRESS REPORT ---
Subjective Progress Note for:: 06/06/19 Subjective:: No adverse events overnight. He still using his CPAP a lot. He feels like the swelling in his arms is gone down some. Urine output is been good. He still upset about his fluid restriction. He spoke with hospice today and his plan is to go home on hospice whenever he leaves the hospital. Reason For Visit: ANASARCA Physical Exam Vital Signs: Temp Pulse Resp BP Pulse Ox 98.3 F 93 18 119/49 L 95 06/06/19 11:22 06/06/19 14:00 06/06/19 11:22 06/06/19 14:00 06/06/19 11:22 Intake & Output 06/05/19 06/06/19 06/07/19 06:59 06:59 06:59 Intake Total 1600 1200 480 Output Total 2125 3000 1125 Balance -525 -1800 -645 Weight 246.754 kg General appearance: PRESENT: no acute distress, cooperative, disheveled, morbidly obese Respiratory exam: PRESENT: decreased breath sounds, symmetrical, unlabored. ABSENT: accessory muscle use, chest wall tenderness, prolonged expiratory phas, rhonchi, tachypnea, wheezes Cardiovascular exam: PRESENT: RRR, +S1, +S2 Vascular exam: PRESENT: normal capillary refill GI/Abdominal exam: PRESENT: normal bowel sounds, soft. ABSENT: diminished bowel sounds, guarding, rebound, tenderness Extremities exam: PRESENT: pedal edema, +2 edema. ABSENT: clubbing Musculoskeletal exam: PRESENT: normal inspection. ABSENT: deformity Neurological exam: PRESENT: alert, awake, oriented to person, oriented to place, oriented to situation Psychiatric exam: PRESENT: appropriate affect, normal mood Skin exam: PRESENT: dry, warm, other - He has some blisters on the anterior shins associated with fluid overload and some cool erythema associated with long-standing chronic venous insufficiency Results Laboratory Results: 06/06/19 05:37 06/05/19 12:40 06/06/19 06/06/19 05:37 05:37 WBC 4.5 RBC 3.03 L Hgb 9.0 L Hct 27.3 L MCV 90 MCH 29.8 MCHC 33.0 RDW 16.5 H Plt Count 160 Retic Count (auto) 1.46 Iron 22.8 L TIBC 299 % Saturation 8 Ferritin 52.10 Vitamin B12 432.0 Folate 12.50 06/01/19 06/01/19 13:25 13:25 Creatine Kinase 468 H Troponin I 0.014 NT-Pro-B Natriuret Pep 1980 H Impressions: Chest X-Ray 06/01/19 13:34 IMPRESSION: STABLE APPEARANCE. MILD CARDIOMEGALY. NO ACUTE RADIOGRAPHIC FINDING IN THE CHEST. Interventional Vascular Procedure 06/02/19 00:00 IMPRESSION: SUCCESSFUL PLACEMENT OF A 5 FR x 45 CM DOUBLE LUMEN PICC VIA THE LEFT BASILIC VEIN UTILIZING SONOGRAPHIC GUIDANCE. PICC Line Insertion 06/02/19 10:45 IMPRESSION: SUCCESSFUL PLACEMENT OF A 5 FR x 45 CM DOUBLE LUMEN PICC VIA THE LEFT BASILIC VEIN UTILIZING SONOGRAPHIC GUIDANCE. Assessment and Plan - Diagnosis (1) Acute respiratory failure with hypoxia Is this a current diagnosis for this admission?: Yes Plan: He already has obesity hypoventilation syndrome along with obstructive sleep apnea, now with diffuse anasarca. Continue supplemental O2 to maintain SPO2 greater than 90%. (2) Anasarca Is this a current diagnosis for this admission?: Yes Plan: Due at least in some part to chronic kidney disease as well as suspected pulmonary hypertension with right heart failure and acute cor pulmonale. Currently on a dobutamine drip with Lasix. He had this same type of treatment before back in December of this year with success. His echocardiogram was done at that time was not very good because of his body habitus, but it looked like his EF was around 55%, but his right ventricle could not be visualized. I increased his IV Lasix again and we hope to achieve increasing urine output without completely ruining his kidney function. We will continue with this treatment until he shows signs of no longer responding. (3) Morbid obesity with BMI of 70 and over, adult Is this a current diagnosis for this admission?: Yes Plan: Strongly encouraged lifestyle modification (4) Obesity hypoventilation syndrome Is this a current diagnosis for this admission?: Yes Plan: Continue with CPAP as needed (5) Obstructive sleep apnea of adult Is this a current diagnosis for this admission?: Yes Plan: He should always use his CPAP at bedtime (6) Acute kidney injury superimposed on CKD Is this a current diagnosis for this admission?: Yes Plan: Creatinine is actually improved with dobutamine and Lasix - Plan Summary Summary: Patient with recent admission in December. Long-term management should include consideration of bariatric surgery. 06/02/2019-after further discussion with the patient and his , the bariatric surgical intervention is not a possibility. I had a chance to talk to the patient's outside of the room. She expressed her frustration. She also expressed the patient's frustration. I did tell her that in all honestly I did not feel the patient would do well. In fact I thought he might get short-term relief from this intervention but he would only be back in the hospital and it would be likely that the windows between periods of decompensation would be getting shorter and shorter. Because I do not think he will make a meaningful recovery and that his condition will only progressively worsen I strongly suggested that the patient and his obtain a palliative care consult. I urged her to consider hospice care at this time. She expressed concern that if this was brought up her would think that she did not love him or care about him. He might think that she wants to get rid of them. I strongly reinforced the fact that after 50 years of marriage it is extremely unlikely that the patient would think that way especially considering all that she sacrifices for the patient. We discussed the fact that the patient is scared but has an underlying suspicion as to the extremely poor prognosis. I have placed a consult for palliative care/hospice. 06/06/2019: When he leaves the hospital he will go home with hospice - Time Time Spent with patient: 15-24 minutes
[2019-06-06] MEDS: OXYCODONE HCL IR 5 MG TABLET PO PRN (20:09)
[2019-06-06] MEDS: DOXAZOSIN MESYLATE 2 MG TABLET PO SCH (21:06)
[2019-06-06] MEDS: SIMVASTATIN 40 MG TABLET PO SCH (21:14)
[2019-06-07] MEDS: FUROSEMIDE INJ/PF 100 MG/10 ML SDV IV SCH ×2 (06:23→17:24)
[2019-06-07] MEDS: NORMAL SALINE 10 ML SDV (AFTER EACH USE) IV PRN (06:23)
[2019-06-07] MEDS: HEPARIN SOD (PORCINE) 5,000 UNIT/ML 1 ML VIAL SUBCUT SCH ×3 (06:24→21:28)
[2019-06-07 06:50] LABS: HEMATOCRIT 28.2 % (37.9-51.0); HEMOGLOBIN 9.3 g/dL (13.5-17.0); MEAN CORPUSCULAR HEMOGLOBIN 29.8 pg (27.0-33.4); MEAN CORPUSCULAR HGB CONC 32.8 g/dL (32.0-36.0); MEAN CORPUSCULAR VOLUME 91 fl (80-97); PLATELET COUNT 163 10^3/uL (150-450); RED BLOOD COUNT 3.11 10^6/uL (4.35-5.55); RED CELL DISTRIBUTION WIDTH 16.4 % (11.5-14.0); WHITE BLOOD COUNT 4.3 10^3/uL (4.0-10.5)
[2019-06-07 07:20] LABS: ANION GAP 9 (5-19); BLOOD UREA NITROGEN 33 mg/dL (7-20); CALCIUM 8.9 mg/dL (8.4-10.2); CARBON DIOXIDE 32 mmol/L (22-30); CHLORIDE 100 mmol/L (98-107); GLUCOSE 80 mg/dL (75-110); POTASSIUM 4.1 mmol/L (3.6-5.0)
[2019-06-07] MEDS: INSULIN LISPRO 100 UNIT/ML 3 ML VIAL SUBCUT SCH ×4 (08:47→21:42)
[2019-06-07] MEDS: PANTOT AC/MIN OIL/PET HY-PHL OINT 50 GM TOP SCH ×2 (11:00→17:23)
[2019-06-07] MEDS: FLUTICASONE NASAL SPRAY 50 MCG/SPRY 120 SPRAY/16 GM NASL SCH ×2 (11:00→21:31)
[2019-06-07] MEDS: ASPIRIN 81 MG TABLET, ENT COATED PO SCH (11:01)
[2019-06-07] MEDS: DOCUSATE SODIUM 100 MG CAPSULE PO SCH ×2 (11:01→17:24)
[2019-06-07] MEDS: MULTIVITAMIN TABLET PO SCH (11:01)
[2019-06-07] MEDS: DOBUTAMINE HCL/D5W 500 MG/250 ML RTUINJ IV PRN (11:01)
[2019-06-07] MEDS: POLYETHYLENE GLYCOL 3350 POWDER 17 GM/1 PACKET PO SCH (11:01)
[2019-06-07] MEDS: GLIPIZIDE 5 MG TABLET PO SCH ×2 (11:01→21:28)
[2019-06-07] MEDS: AMLODIPINE BESYLATE 5 MG TABLET PO SCH (11:01)
[2019-06-07] MEDS: NORMAL SALINE 10 ML SDV (SCHEDULED) IV SCH ×2 (11:06→21:31)
--- NOTE | 2019-06-07 11:45 | PDOC PROGRESS REPORT ---
Subjective Progress Note for:: 06/07/19 Subjective:: Patient is currently stable and continues to very slowly improve. However still complains of shortness of breathing. He is responding very well to IV furosemide. His urine output was 2625 mL for the last 24 hours. He continues to be on dobutamine drip. Patient and has decided to go with hospice care upon discharge. Reason For Visit: ANASARCA Physical Exam Vital Signs: Temp Pulse Resp BP Pulse Ox 97.6 F 93 16 111/49 L 96 06/07/19 08:00 06/07/19 09:00 06/07/19 08:00 06/07/19 09:00 06/07/19 08:00 Intake & Output 06/06/19 06/07/19 06/08/19 06:59 06:59 06:59 Intake Total 1200 850 250 Output Total 3000 2625 Balance -1800 -1775 250 Weight 266 kg Exam: General appearance: PRESENT: no acute distress, cooperative, morbidly obese Head exam: PRESENT: atraumatic, normocephalic Eye exam: PRESENT: conjunctiva pale, PERRLA. ABSENT: scleral icterus Neck exam: ABSENT: JVD Respiratory exam: PRESENT: Diminished breath sounds. ABSENT: crackles, rales, rhonchi, unlabored, wheezes Cardiovascular exam: PRESENT: Regular rate rhythm, soft +S1, +S2. ABSENT: diastolic murmur, systolic murmur GI/Abdominal exam: PRESENT: normal bowel sounds, soft. ABSENT: guarding, mass, tenderness Extremities exam: Positive anasarca, not much change Neurological exam: PRESENT: alert, awake, oriented to person, place and time. Skin exam: PRESENT: dry, warm, Results Laboratory Results: 06/07/19 06:35 06/07/19 06:35 06/07/19 06/07/19 06:35 06:35 WBC 4.3 RBC 3.11 L Hgb 9.3 L Hct 28.2 L MCV 91 MCH 29.8 MCHC 32.8 RDW 16.4 H Plt Count 163 Sodium 140.7 Potassium 4.1 Chloride 100 Carbon Dioxide 32 H Anion Gap 9 BUN 33 H Creatinine 1.82 H Est GFR ( Amer) 45 L Glucose 80 Calcium 8.9 06/01/19 06/01/19 13:25 13:25 Creatine Kinase 468 H Troponin I 0.014 NT-Pro-B Natriuret Pep 1980 H Impressions: Chest X-Ray 06/01/19 13:34 IMPRESSION: STABLE APPEARANCE. MILD CARDIOMEGALY. NO ACUTE RADIOGRAPHIC FINDING IN THE CHEST. Interventional Vascular Procedure 06/02/19 00:00 IMPRESSION: SUCCESSFUL PLACEMENT OF A 5 FR x 45 CM DOUBLE LUMEN PICC VIA THE LEFT BASILIC VEIN UTILIZING SONOGRAPHIC GUIDANCE. PICC Line Insertion 06/02/19 10:45 IMPRESSION: SUCCESSFUL PLACEMENT OF A 5 FR x 45 CM DOUBLE LUMEN PICC VIA THE LEFT BASILIC VEIN UTILIZING SONOGRAPHIC GUIDANCE. Assessment & Plan - Diagnosis (1) Acute on chronic systolic (congestive) heart failure Is this a current diagnosis for this admission?: Yes Plan: Possibly biventricular with pulmonary hypertension. Patient currently on dobutamine drip and IV Lasix. Continue same. Patient and are has decided on hospice care upon discharge. Agree with this. (2) Acute kidney injury superimposed on CKD Is this a current diagnosis for this admission?: Yes Plan: Secondary to prerenal factors including congestive heart failure. Kidney function has been stable. Continue current management. (3) Anasarca Is this a current diagnosis for this admission?: Yes Plan: There is some minimal improvement of swelling but as I have mentioned in the past this will not be resolved anytime soon. This needs to be treated for long- term cautiously. (4) Obstructive sleep apnea of adult Is this a current diagnosis for this admission?: Yes (5) Diabetes mellitus type 2 in obese Is this a current diagnosis for this admission?: Yes (6) Hypertension Qualifiers: Hypertension type: essential hypertension Qualified Code(s): I10 - Essential (primary) hypertension Is this a current diagnosis for this admission?: Yes Plan: Adequate control for now. (7) Anemia Is this a current diagnosis for this admission?: Yes Plan: Chronic kidney disease is contributory. He also has iron deficiency. He received IV Injectafer yesterday, 06/06/2019. He should receive another dose in 1 week's time and hopefully he can be given this by the hospice service if he is already discharged. After which he needs to have a repeat CBC and iron level in 4 weeks at least. (8) Morbid obesity with BMI of 70 and over, adult Is this a current diagnosis for this admission?: Yes - Notes Notes: Continue current medication and management. Agree with hospice care. No further recommendation from nephrology standpoint at this point. I will sign off. Please call me for any questions or if I can be of any further help. - Time Time with patient: 15-25 minutes
--- NOTE | 2019-06-07 18:53 | PDOC PROGRESS REPORT ---
Subjective Progress Note for:: 06/07/19 Subjective:: No adverse events overnight. Increased his Lasix yesterday and his urine output has responded very well. He and his were encouraged to hear that he can have a dobutamine drip at home on hospice, and I told him I would check to see if he can get IV Lasix for a few days before transitioning to oral Lasix. Reason For Visit: ANASARCA Physical Exam Vital Signs: Temp Pulse Resp BP Pulse Ox 97.8 F 95 19 102/51 L 95 06/07/19 14:00 06/07/19 14:00 06/07/19 14:00 06/07/19 14:00 06/07/19 14:00 Intake & Output 06/06/19 06/07/19 06/08/19 06:59 06:59 06:59 Intake Total 1200 850 730 Output Total 3000 2625 Balance -1800 -1775 730 Weight 266 kg General appearance: PRESENT: no acute distress, cooperative, disheveled, morbidly obese Respiratory exam: PRESENT: decreased breath sounds, symmetrical, unlabored. ABSENT: accessory muscle use, chest wall tenderness, prolonged expiratory phas, rhonchi, tachypnea, wheezes Cardiovascular exam: PRESENT: RRR, +S1, +S2 Vascular exam: PRESENT: normal capillary refill GI/Abdominal exam: PRESENT: normal bowel sounds, soft. ABSENT: diminished bowel sounds, guarding, rebound, tenderness Extremities exam: PRESENT: pedal edema, +2 edema. ABSENT: clubbing Musculoskeletal exam: PRESENT: normal inspection. ABSENT: deformity Neurological exam: PRESENT: alert, awake, oriented to person, oriented to place, oriented to situation Psychiatric exam: PRESENT: appropriate affect, normal mood Skin exam: PRESENT: dry, warm, other - He has some blisters on the anterior shins associated with fluid overload and some cool erythema associated with lo ng-standing chronic venous insufficiency Results Laboratory Results: 06/07/19 06:35 06/07/19 06:35 06/07/19 06/07/19 06:35 06:35 WBC 4.3 RBC 3.11 L Hgb 9.3 L Hct 28.2 L MCV 91 MCH 29.8 MCHC 32.8 RDW 16.4 H Plt Count 163 Sodium 140.7 Potassium 4.1 Chloride 100 Carbon Dioxide 32 H Anion Gap 9 BUN 33 H Creatinine 1.82 H Est GFR ( Amer) 45 L Glucose 80 Calcium 8.9 06/01/19 06/01/19 13:25 13:25 Creatine Kinase 468 H Troponin I 0.014 NT-Pro-B Natriuret Pep 1980 H Impressions: Chest X-Ray 06/01/19 13:34 IMPRESSION: STABLE APPEARANCE. MILD CARDIOMEGALY. NO ACUTE RADIOGRAPHIC FINDING IN THE CHEST. Interventional Vascular Procedure 06/02/19 00:00 IMPRESSION: SUCCESSFUL PLACEMENT OF A 5 FR x 45 CM DOUBLE LUMEN PICC VIA THE LEFT BASILIC VEIN UTILIZING SONOGRAPHIC GUIDANCE. PICC Line Insertion 06/02/19 10:45 IMPRESSION: SUCCESSFUL PLACEMENT OF A 5 FR x 45 CM DOUBLE LUMEN PICC VIA THE LEFT BASILIC VEIN UTILIZING SONOGRAPHIC GUIDANCE. Assessment and Plan - Diagnosis (1) Acute respiratory failure with hypoxia Is this a current diagnosis for this admission?: Yes Plan: He already has obesity hypoventilation syndrome along with obstructive sleep apnea, now with diffuse anasarca. Continue supplemental O2 to maintain SPO2 greater than 90%. (2) Anasarca Is this a current diagnosis for this admission?: Yes Plan: She had improved urine output with an increased dose of Lasix. Also on dobutamine. He already has a PICC line. We will see if we can get him some dobutamine at home with hospice. We will also see if we can give IV Lasix during that time, but if not we will just put him on a high dose of oral Lasix. (3) Morbid obesity with BMI of 70 and over, adult Is this a current diagnosis for this admission?: Yes Plan: Strongly encouraged lifestyle modification (4) Obesity hypoventilation syndrome Is this a current diagnosis for this admission?: Yes Plan: Continue with CPAP as needed (5) Obstructive sleep apnea of adult Is this a current diagnosis for this admission?: Yes Plan: He should always use his CPAP at bedtime (6) Acute kidney injury superimposed on CKD Is this a current diagnosis for this admission?: Yes Plan: Kidneys tolerating diuresis very well we will continue unless his creatinine starts to trend back up - Plan Summary Summary: Patient with recent admission in December. Long-term management should include consideration of bariatric surgery. 06/02/2019-after further discussion with the patient and his , the bariatric surgical intervention is not a possibility. I had a chance to talk to the liam ent's outside of the room. She expressed her frustration. She also expressed the patient's frustration. I did tell her that in all honestly I did not feel the patient would do well. In fact I thought he might get short-term relief from this intervention but he would only be back in the hospital and it would be likely that the windows between periods of decompensation would be getting shorter and shorter. Because I do not think he will make a meaningful recovery and that his condition will only progressively worsen I strongly suggested that the patient and his obtain a palliative care consult. I urged her to consider hospice care at this time. She expressed concern that if this was brought up her would think that she did not love him or care about him. He might think that she wants to get rid of them. I strongly reinforced the fact that after 50 years of marriage it is extremely unlikely that the patient would think that way especially considering all that she sacrifices for the patient. We discussed the fact that the patient is scared but has an underlying suspicion as to the extremely poor prognosis. I have placed a consult for palliative care/hospice. 06/06/2019: When he leaves the hospital he will go home with hospice - Time Time Spent with patient: 15-24 minutes
[2019-06-07] MEDS: DOXAZOSIN MESYLATE 2 MG TABLET PO SCH (21:28)
[2019-06-07] MEDS: SIMVASTATIN 40 MG TABLET PO SCH (21:28)
[2019-06-08] MEDS: DOBUTAMINE HCL/D5W 500 MG/250 ML RTUINJ IV PRN ×2 (00:53→14:07)
[2019-06-08] MEDS: FUROSEMIDE INJ/PF 100 MG/10 ML SDV IV SCH ×2 (05:26→18:37)
[2019-06-08] MEDS: HEPARIN SOD (PORCINE) 5,000 UNIT/ML 1 ML VIAL SUBCUT SCH ×3 (05:27→21:36)
[2019-06-08] MEDS: INSULIN LISPRO 100 UNIT/ML 3 ML VIAL SUBCUT SCH ×4 (08:55→21:47)
[2019-06-08] MEDS: NORMAL SALINE 10 ML SDV (SCHEDULED) IV SCH ×2 (10:31→21:37)
[2019-06-08] MEDS: AMLODIPINE BESYLATE 5 MG TABLET PO SCH (10:33)
[2019-06-08] MEDS: MULTIVITAMIN TABLET PO SCH (10:33)
[2019-06-08] MEDS: DOCUSATE SODIUM 100 MG CAPSULE PO SCH ×2 (10:34→18:37)
[2019-06-08] MEDS: GLIPIZIDE 5 MG TABLET PO SCH ×2 (10:34→21:35)
[2019-06-08] MEDS: ASPIRIN 81 MG TABLET, ENT COATED PO SCH (10:34)
[2019-06-08] MEDS: PANTOT AC/MIN OIL/PET HY-PHL OINT 50 GM TOP SCH ×2 (10:35→17:09)
[2019-06-08] MEDS: POLYETHYLENE GLYCOL 3350 POWDER 17 GM/1 PACKET PO SCH (10:35)
[2019-06-08] MEDS: FLUTICASONE NASAL SPRAY 50 MCG/SPRY 120 SPRAY/16 GM NASL SCH ×2 (10:36→21:35)
--- NOTE | 2019-06-08 14:48 | PDOC PROGRESS REPORT ---
Subjective Progress Note for:: 06/08/19 Subjective:: No adverse events overnight. Continues to have good urine output on dobutamine and his current dose of Lasix. Planning for him to go home Wednesday. Had some trouble breathing that got a little better with the nebulizer treatment. Reason For Visit: ANASARCA Physical Exam Vital Signs: Temp Pulse Resp BP Pulse Ox 98.0 F 86 17 154/66 H 98 06/08/19 10:59 06/08/19 14:00 06/08/19 10:59 06/08/19 11:00 06/08/19 10:59 Intake & Output 06/07/19 06/08/19 06/09/19 06:59 06:59 06:59 Intake Total 850 1615 248 Output Total 2625 3025 Balance -1775 -1410 248 Weight 266 kg 245 kg General appearance: PRESENT: no acute distress, cooperative, disheveled, morbidly obese Respiratory exam: PRESENT: decreased breath sounds, symmetrical, unlabored. ABSENT: accessory muscle use, chest wall tenderness, prolonged expiratory phas, rhonchi, tachypnea, wheezes Cardiovascular exam: PRESENT: RRR, +S1, +S2 Vascular exam: PRESENT: normal capillary refill GI/Abdominal exam: PRESENT: normal bowel sounds, soft. ABSENT: diminished bowel sounds, guarding, rebound, tenderness Extremities exam: PRESENT: pedal edema, +2 edema. ABSENT: clubbing Musculoskeletal exam: PRESENT: normal inspection. ABSENT: deformity Neurological exam: PRESENT: alert, awake, oriented to person, oriented to place, oriented to situation Psychiatric exam: PRESENT: appropriate affect, normal mood Skin exam: PRESENT: dry, warm, other - He has some blisters on the anterior shins associated with fluid overload and some cool erythema associated with long-standing chronic venous insufficiency Results Laboratory Results: 06/07/19 06:35 06/07/19 06:35 06/01/19 06/01/19 13:25 13:25 Creatine Kinase 468 H Troponin I 0.014 NT-Pro-B Natriuret Pep 1980 H Impressions: Chest X-Ray 06/01/19 13:34 IMPRESSION: STABLE APPEARANCE. MILD CARDIOMEGALY. NO ACUTE RADIOGRAPHIC FINDING IN THE CHEST. Interventional Vascular Procedure 06/02/19 00:00 IMPRESSION: SUCCESSFUL PLACEMENT OF A 5 FR x 45 CM DOUBLE LUMEN PICC VIA THE LEFT BASILIC VEIN UTILIZING SONOGRAPHIC GUIDANCE. PICC Line Insertion 06/02/19 10:45 IMPRESSION: SUCCESSFUL PLACEMENT OF A 5 FR x 45 CM DOUBLE LUMEN PICC VIA THE LE FT BASILIC VEIN UTILIZING SONOGRAPHIC GUIDANCE. Assessment and Plan - Diagnosis (1) Acute respiratory failure with hypoxia Is this a current diagnosis for this admission?: Yes Plan: He already has obesity hypoventilation syndrome along with obstructive sleep apnea, now with diffuse anasarca. Continue supplemental O2 to maintain SPO2 greater than 90%. (2) Anasarca Is this a current diagnosis for this admission?: Yes Plan: She had improved urine output with an increased dose of Lasix. Also on dobutamine. He already has a PICC line. We will see if we can get him some dobutamine at home with hospice. We will also see if we can give IV Lasix during that time, but if not we will just put him on a high dose of oral Lasix. (3) Morbid obesity with BMI of 70 and over, adult Is this a current diagnosis for this admission?: Yes Plan: Strongly encouraged lifestyle modification (4) Obesity hypoventilation syndrome Is this a current diagnosis for this admission?: Yes Plan: Continue with CPAP as needed (5) Obstructive sleep apnea of adult Is this a current diagnosis for this admission?: Yes Plan: He should always use his CPAP at bedtime (6) Acute kidney injury superimposed on CKD Is this a current diagnosis for this admission?: Yes Plan: Kidneys tolerating diuresis very well we will continue unless his creatinine starts to trend back up - Plan Summary Summary: Patient with recent admission in December. Long-term management should include consideration of bariatric surgery. 06/02/2019-after further discussion with the patient and his , the bariatric surgical intervention is not a possibility. I had a chance to talk to the patient's outside of the room. She expressed her frustration. She also expressed the patient's frustration. I did tell her that in all honestly I did not feel the patient would do well. In fact I thought he might get short-term relief from this intervention but he would only be back in the hospital and it would be likely that the windows between periods of decompensation would be getting shorter and shorter. Because I do not think he will make a meaningful recovery and that his condition will only progressively worsen I strongly suggested that the patient and his obtain a palliative care consult. I urged her to consider hospice care at this time. She expressed concern that if this was brought up her would think that she did not love him or care about him. He might think that she wants to get rid of them. I strongly reinforced the fact that after 50 years of marriage it is extremely unlikely that the patient would think that way especially considering all that she sacrifices for the patient. We discussed the fact that the patient is scared but has an underlying suspicion as to the extremely poor prognosis. I have pl aced a consult for palliative care/hospice. 06/06/2019: When he leaves the hospital he will go home with hospice - Time Time Spent with patient: 15-24 minutes
[2019-06-08] MEDS ORDERED: IPRATROPIUM/ALBUTEROL 0.5-2.5 MG/3 ML AMPUL NEB ONE (15:00)
[2019-06-08] MEDS: DOXAZOSIN MESYLATE 2 MG TABLET PO SCH (21:35)
[2019-06-08] MEDS: SIMVASTATIN 40 MG TABLET PO SCH (21:35)
[2019-06-08] MEDS: ACETAMINOPHEN 325 MG TABLET PO PRN (22:58)
[2019-06-09] MEDS: DOBUTAMINE HCL/D5W 500 MG/250 ML RTUINJ IV PRN ×2 (03:41→16:26)
[2019-06-09] MEDS: HEPARIN SOD (PORCINE) 5,000 UNIT/ML 1 ML VIAL SUBCUT SCH ×3 (05:35→21:51)
[2019-06-09] MEDS: FUROSEMIDE INJ/PF 100 MG/10 ML SDV IV SCH ×2 (05:36→17:15)
[2019-06-09] MEDS: NORMAL SALINE 10 ML SDV (AFTER EACH USE) IV PRN (05:49)
[2019-06-09 08:45] LABS: ANION GAP 7 (5-19); BLOOD UREA NITROGEN 30 mg/dL (7-20); CALCIUM 8.7 mg/dL (8.4-10.2); CARBON DIOXIDE 33 mmol/L (22-30); CHLORIDE 102 mmol/L (98-107); GLUCOSE 129 mg/dL (75-110); POTASSIUM 3.9 mmol/L (3.6-5.0)
[2019-06-09] MEDS: INSULIN LISPRO 100 UNIT/ML 3 ML VIAL SUBCUT SCH ×4 (09:01→21:54)
[2019-06-09] MEDS: GLIPIZIDE 5 MG TABLET PO SCH ×2 (09:37→21:51)
[2019-06-09] MEDS: ACETAMINOPHEN 325 MG TABLET PO PRN (09:37)
[2019-06-09] MEDS: MULTIVITAMIN TABLET PO SCH (09:37)
[2019-06-09] MEDS: ASPIRIN 81 MG TABLET, ENT COATED PO SCH (09:37)
[2019-06-09] MEDS: POLYETHYLENE GLYCOL 3350 POWDER 17 GM/1 PACKET PO SCH (09:37)
[2019-06-09] MEDS: AMLODIPINE BESYLATE 5 MG TABLET PO SCH (09:37)
[2019-06-09] MEDS: DOCUSATE SODIUM 100 MG CAPSULE PO SCH ×2 (09:37→17:15)
[2019-06-09] MEDS: FLUTICASONE NASAL SPRAY 50 MCG/SPRY 120 SPRAY/16 GM NASL SCH ×2 (09:38→21:53)
[2019-06-09] MEDS: NORMAL SALINE 10 ML SDV (SCHEDULED) IV SCH ×2 (09:38→21:54)
[2019-06-09] MEDS: PANTOT AC/MIN OIL/PET HY-PHL OINT 50 GM TOP SCH ×2 (09:38→17:13)
[2019-06-09] MEDS: OXYCODONE HCL IR 5 MG TABLET PO PRN (15:11)
--- NOTE | 2019-06-09 17:16 | PDOC PROGRESS REPORT ---
Subjective Progress Note for:: 06/09/19 Subjective:: No adverse events overnight. No new complaints. Vital signs been stable. He said good urine output. He still complaining about the fluid restriction. He had some shortness of breath yesterday but he got a neb treatment and that resolved. Reason For Visit: ANASARCA Physical Exam Vital Signs: Temp Pulse Resp BP Pulse Ox 98.2 F 93 18 141/66 H 93 06/09/19 15:31 06/09/19 16:00 06/09/19 15:31 06/09/19 16:00 06/09/19 15:31 Intake & Output 06/08/19 06/09/19 06/10/19 06:59 06:59 06:59 Intake Total 1615 1128 239 Output Total 3025 2795 Balance -1410 -357 239 Weight 245 kg 265 kg General appearance: PRESENT: no acute distress, cooperative, disheveled, morbidly obese Respiratory exam: PRESENT: decreased breath sounds, symmetrical, unlabored. ABSENT: accessory muscle use, chest wall tenderness, prolonged expiratory phas, rhonchi, tachypnea, wheezes Cardiovascular exam: PRESENT: RRR, +S1, +S2 Vascular exam: PRESENT: normal capillary refill GI/Abdominal exam: PRESENT: normal bowel sounds, soft. ABSENT: diminished bowel sounds, guarding, rebound, tenderness Extremities exam: PRESENT: pedal edema, +2 edema. ABSENT: clubbing Musculoskeletal exam: PRESENT: normal inspection. ABSENT: deformity Neurological exam: PRESENT: alert, awake, oriented to person, oriented to place, oriented to situation Psychiatric exam: PRESENT: appropriate affect, normal mood Skin exam: PRESENT: dry, warm, other - He has some blisters on the anterior shins associated with fluid overload and some cool erythema associated with long-standing chronic venous insufficiency Results Laboratory Results: 06/07/19 06:35 06/09/19 08:07 06/09/19 08:07 Sodium 142.4 Potassium 3.9 Chloride 102 Carbon Dioxide 33 H Anion Gap 7 BUN 30 H Creatinine 1.72 H Est GFR ( Amer) 48 L Glucose 129 H Calcium 8.7 06/01/19 06/01/19 13:25 13:25 Creatine Kinase 468 H Troponin I 0.014 NT-Pro-B Natriuret Pep 1980 H Impressions: Chest X-Ray 06/01/19 13:34 IMPRESSION: STABLE APPEARANCE. MILD CARDIOMEGALY. NO ACUTE RADIOGRAPHIC FINDING IN THE CHEST. Interventional Vascular Procedure 06/02/19 00:00 IMPRESSION: SUCCESSFUL PLACEMENT OF A 5 FR x 45 CM DOUBLE LUMEN PICC VIA THE LEFT BASILIC VEIN UTILIZING SONOGRAPHIC GUIDANCE. PICC Line Insertion 06/02/19 10:45 IMPRESSION: SUCCESSFUL PLACEMENT OF A 5 FR x 45 CM DOUBLE LUMEN PICC VIA THE LEFT BASILIC VEIN UTILIZING SONOGRAPHIC GUIDANCE. Assessment and Plan - Diagnosis (1) Acute respiratory failure with hypoxia Is this a current diagnosis for this admission?: Yes Plan: He already has obesity hypoventilation syndrome along with obstructive sleep apnea, now with diffuse anasarca. Continue supplemental O2 to maintain SPO2 greater than 90%. (2) Anasarca Is this a current diagnosis for this admission?: Yes Plan: She had improved urine output with an increased dose of Lasix. Also on dobutamine. He already has a PICC line. It seems as if he may not be able to get dobutamine on hospice after all. We will continue diuresis him while he is here as long as his kidneys tolerate. (3) Morbid obesity with BMI of 70 and over, adult Is this a current diagnosis for this admission?: Yes Plan: Strongly encouraged lifestyle modification (4) Obesity hypoventilation syndrome Is this a current diagnosis for this admission?: Yes Plan: Continue with CPAP as needed (5) Obstructive sleep apnea of adult Is this a current diagnosis for this admission?: Yes Plan: He should always use his CPAP at bedtime (6) Acute kidney injury superimposed on CKD Is this a current diagnosis for this admission?: Yes Plan: Kidneys tolerating diuresis very well we will continue unless his creatinine starts to trend back up. His creatinine is actually trending down despite the fact that we are diuresing him aggressively. - Plan Summary Summary: Patient with recent admission in December. Long-term management should include consideration of bariatric surgery. 06/02/2019-after further discussion with the patient and his , the bariatric surgical intervention is not a possibility. I had a chance to talk to the patient's outside of the room. She expressed her frustration. She also expressed the patient's frustration. I did tell her that in all honestly I did not feel the patient would do well. In fact I thought he might get short-term relief from this intervention but he would only be back in the hospital and it would be likely that the windows between periods of decompensation would be getting shorter and shorter. Because I do not think he will make a meaningful recovery and that his condition will only progressively worsen I strongly sugges sabino that the patient and his obtain a palliative care consult. I urged her to consider hospice care at this time. She expressed concern that if this was brought up her would think that she did not love him or care about him. He might think that she wants to get rid of them. I strongly reinforced the fact that after 50 years of marriage it is extremely unlikely that the patient would think that way especially considering all that she sacrifices for the patient. We discussed the fact that the patient is scared but has an underlying suspicion as to the extremely poor prognosis. I have placed a consult for palliative care/hospice. 06/06/2019: When he leaves the hospital he will go home with hospice - Time Time Spent with patient: 15-24 minutes
[2019-06-09] MEDS: DOXAZOSIN MESYLATE 2 MG TABLET PO SCH (21:51)
[2019-06-09] MEDS: SIMVASTATIN 40 MG TABLET PO SCH (21:52)
[2019-06-10] MEDS: HEPARIN SOD (PORCINE) 5,000 UNIT/ML 1 ML VIAL SUBCUT SCH ×3 (06:08→21:34)
[2019-06-10] MEDS: FUROSEMIDE INJ/PF 100 MG/10 ML SDV IV SCH ×2 (06:08→18:03)
[2019-06-10] MEDS: DOBUTAMINE HCL/D5W 500 MG/250 ML RTUINJ IV PRN ×2 (06:11→18:59)
[2019-06-10] MEDS: INSULIN LISPRO 100 UNIT/ML 3 ML VIAL SUBCUT SCH ×4 (08:24→21:31)
[2019-06-10] MEDS: PANTOT AC/MIN OIL/PET HY-PHL OINT 50 GM TOP SCH ×2 (10:17→17:22)
[2019-06-10] MEDS: MULTIVITAMIN TABLET PO SCH (10:18)
[2019-06-10] MEDS: ASPIRIN 81 MG TABLET, ENT COATED PO SCH (10:18)
[2019-06-10] MEDS: GLIPIZIDE 5 MG TABLET PO SCH ×2 (10:18→21:30)
[2019-06-10] MEDS: AMLODIPINE BESYLATE 5 MG TABLET PO SCH (10:19)
[2019-06-10] MEDS: NORMAL SALINE 10 ML SDV (SCHEDULED) IV SCH ×2 (10:19→21:33)
[2019-06-10] MEDS: POLYETHYLENE GLYCOL 3350 POWDER 17 GM/1 PACKET PO SCH (10:20)
[2019-06-10] MEDS: DOCUSATE SODIUM 100 MG CAPSULE PO SCH ×2 (10:20→17:22)
[2019-06-10] MEDS: FLUTICASONE NASAL SPRAY 50 MCG/SPRY 120 SPRAY/16 GM NASL SCH ×2 (10:20→21:34)
--- NOTE | 2019-06-10 15:29 | PDOC PROGRESS REPORT ---
Subjective Progress Note for:: 06/10/19 Subjective:: No adverse events overnight. No new complaints. Vital signs been stable. He said good urine output. He still complaining about the fluid restriction. Is able to rest comfortably enough with his CPAP. Reason For Visit: ANASARCA Physical Exam Vital Signs: Temp Pulse Resp BP Pulse Ox 97.0 F 91 19 110/92 H 97 06/10/19 11:31 06/10/19 14:00 06/10/19 11:31 06/10/19 12:00 06/10/19 11:31 Intake & Output 06/09/19 06/10/19 06/11/19 06:59 06:59 06:59 Intake Total 1128 2399 218 Output Total 1825 900 725 Balance -697 1499 -507 Weight 265 kg 243 kg General appearance: PRESENT: no acute distress, cooperative, disheveled, morbidly obese Respiratory exam: PRESENT: decreased breath sounds, symmetrical, unlabored. ABSENT: accessory muscle use, chest wall tenderness, prolonged expiratory phas, rhonchi, tachypnea, wheezes Cardiovascular exam: PRESENT: RRR, +S1, +S2 Vascular exam: PRESENT: normal capillary refill GI/Abdominal exam: PRESENT: normal bowel sounds, soft. ABSENT: diminished bowel sounds, guarding, rebound, tenderness Extremities exam: PRESENT: pedal edema, +2 edema. ABSENT: clubbing Musculoskeletal exam: PRESENT: normal inspection. ABSENT: deformity Neurological exam: PRESENT: alert, awake, oriented to person, oriented to place, oriented to situation Psychiatric exam: PRESENT: appropriate affect, normal mood Skin exam: PRESENT: dry, warm, other - He has some blisters on the anterior shins associated with fluid overload and some cool erythema associated with l carlo-standing chronic venous insufficiency Results Laboratory Results: 06/07/19 06:35 06/09/19 08:07 06/01/19 06/01/19 13:25 13:25 Creatine Kinase 468 H Troponin I 0.014 NT-Pro-B Natriuret Pep 1980 H Impressions: Chest X-Ray 06/01/19 13:34 IMPRESSION: STABLE APPEARANCE. MILD CARDIOMEGALY. NO ACUTE RADIOGRAPHIC FINDING IN THE CHEST. Interventional Vascular Procedure 06/02/19 00:00 IMPRESSION: SUCCESSFUL PLACEMENT OF A 5 FR x 45 CM DOUBLE LUMEN PICC VIA THE LEFT BASILIC VEIN UTILIZING SONOGRAPHIC GUIDANCE. PICC Line Insertion 06/02/19 10:45 IMPRESSION: SUCCESSFUL PLACEMENT OF A 5 FR x 45 CM DOUBLE LUMEN PICC VIA THE LEFT BASILIC VEIN UTILIZING SONOGRAPHIC GUIDANCE. Assessment and Plan - Diagnosis (1) Acute respiratory failure with hypoxia Is this a current diagnosis for this admission?: Yes Plan: He already has obesity hypoventilation syndrome along with obstructive sleep apnea, now with diffuse anasarca. Continue supplemental O2 to maintain SPO2 greater than 90%. (2) Anasarca Is this a current diagnosis for this admission?: Yes Plan: he had improved urine output with an increased dose of Lasix. Also on dobutamine. He already has a PICC line. It seems as if he may not be able to get dobutamine on hospice after all. We will continue diuresis him while he is here as long as his kidneys tolerate. (3) Morbid obesity with BMI of 70 and over, adult Is this a current diagnosis for this admission?: Yes Plan: Strongly encouraged lifestyle modification (4) Obesity hypoventilation syndrome Is this a current diagnosis for this admission?: Yes Plan: Continue with CPAP as needed (5) Obstructive sleep apnea of adult Is this a current diagnosis for this admission?: Yes Plan: He should always use his CPAP at bedtime (6) Acute kidney injury superimposed on CKD Is this a current diagnosis for this admission?: Yes Plan: Kidneys tolerating diuresis very well we will continue unless his creatinine starts to trend back up. His creatinine is actually trending down despite the f act that we are diuresing him aggressively. - Plan Summary Summary: Patient with recent admission in December. Long-term management should include consideration of bariatric surgery. 06/02/2019-after further discussion with the patient and his , the bariatric surgical intervention is not a possibility. I had a chance to talk to the patient's outside of the room. She expressed her frustration. She also expressed the patient's frustration. I did tell her that in all honestly I did not feel the patient would do well. In fact I thought he might get short-term relief from this intervention but he would only be back in the hospital and it would be likely that the windows between periods of decompensation would be getting shorter and shorter. Because I do not think he will make a meaningful recovery and that his condition will only progressively worsen I strongly suggested that the patient and his obtain a palliative care consult. I u rged her to consider hospice care at this time. She expressed concern that if this was brought up her would think that she did not love him or care about him. He might think that she wants to get rid of them. I strongly reinforced the fact that after 50 years of marriage it is extremely unlikely that the patient would think that way especially considering all that she sacrifices for the patient. We discussed the fact that the patient is scared but has an underlying suspicion as to the extremely poor prognosis. I have placed a consult for palliative care/hospice. 06/06/2019: When he leaves the hospital he will go home with hospice - Time Time Spent with patient: 15-24 minutes
[2019-06-10] MEDS: SIMVASTATIN 40 MG TABLET PO SCH (21:30)
[2019-06-10] MEDS: DOXAZOSIN MESYLATE 2 MG TABLET PO SCH (21:33)
[2019-06-11] MEDS: HEPARIN SOD (PORCINE) 5,000 UNIT/ML 1 ML VIAL SUBCUT SCH ×3 (06:14→22:31)
[2019-06-11] MEDS: FUROSEMIDE INJ/PF 100 MG/10 ML SDV IV SCH ×2 (06:14→17:22)
[2019-06-11] MEDS: INSULIN LISPRO 100 UNIT/ML 3 ML VIAL SUBCUT SCH ×2 (08:31→12:38)
[2019-06-11] MEDS: ASPIRIN 81 MG TABLET, ENT COATED PO SCH (09:01)
[2019-06-11] MEDS: AMLODIPINE BESYLATE 5 MG TABLET PO SCH (09:01)
[2019-06-11] MEDS: POLYETHYLENE GLYCOL 3350 POWDER 17 GM/1 PACKET PO SCH (09:02)
[2019-06-11] MEDS: DOCUSATE SODIUM 100 MG CAPSULE PO SCH ×2 (09:02→17:22)
[2019-06-11] MEDS: MULTIVITAMIN TABLET PO SCH (09:02)
[2019-06-11] MEDS: GLIPIZIDE 5 MG TABLET PO SCH ×2 (09:02→22:29)
[2019-06-11] MEDS: NORMAL SALINE 10 ML SDV (SCHEDULED) IV SCH ×2 (09:03→22:30)
[2019-06-11] MEDS: FLUTICASONE NASAL SPRAY 50 MCG/SPRY 120 SPRAY/16 GM NASL SCH ×2 (09:03→22:34)
[2019-06-11] MEDS: DOBUTAMINE HCL/D5W 500 MG/250 ML RTUINJ IV PRN ×2 (09:04→22:32)
[2019-06-11] MEDS: PANTOT AC/MIN OIL/PET HY-PHL OINT 50 GM TOP SCH ×2 (09:18→17:26)
--- NOTE | 2019-06-11 13:57 | PDOC PROGRESS REPORT ---
Subjective Progress Note for:: 06/11/19 Subjective:: No adverse events overnight. No new complaints. He continues to have a good diuresis. He tells me he is going home on Wednesday. Reason For Visit: ANASARCA Physical Exam Vital Signs: Temp Pulse Resp BP Pulse Ox 97.4 F 94 17 130/66 H 94 06/11/19 11:00 06/11/19 11:00 06/11/19 11:00 06/11/19 11:00 06/11/19 11:00 Intake & Output 06/10/19 06/11/19 06/12/19 06:59 06:59 06:59 Intake Total 2399 886 395 Output Total 900 2150 880 Balance 1499 -1264 -485 Weight 243 kg 265 kg 241.23 kg General appearance: PRESENT: no acute distress, cooperative, disheveled, morbidly obese Respiratory exam: PRESENT: decreased breath sounds, symmetrical, unlabored. ABSENT: accessory muscle use, chest wall tenderness, prolonged expiratory phas, rhonchi, tachypnea, wheezes Cardiovascular exam: PRESENT: RRR, +S1, +S2 Vascular exam: PRESENT: normal capillary refill GI/Abdominal exam: PRESENT: normal bowel sounds, soft. ABSENT: diminished bowel sounds, guarding, rebound, tenderness Extremities exam: PRESENT: pedal edema, +2 edema. ABSENT: clubbing Musculoskeletal exam: PRESENT: normal inspection. ABSENT: deformity Neurological exam: PRESENT: alert, awake, oriented to person, oriented to place, oriented to situation Psychiatric exam: PRESENT: appropriate affect, normal mood Skin exam: PRESENT: dry, warm, other - He has some blisters on the anterior shins associated with fluid overload and some cool erythema associated with long-standing chronic venous insufficiency Results Laboratory Results: 06/07/19 06:35 06/09/19 08:07 06/01/19 06/01/19 13:25 13:25 Creatine Kinase 468 H Troponin I 0.014 NT-Pro-B Natriuret Pep 1980 H Impressions: Chest X-Ray 06/01/19 13:34 IMPRESSION: STABLE APPEARANCE. MILD CARDIOMEGALY. NO ACUTE RADIOGRAPHIC FINDING IN THE CHEST. Interventional Vascular Procedure 06/02/19 00:00 IMPRESSION: SUCCESSFUL PLACEMENT OF A 5 FR x 45 CM DOUBLE LUMEN PICC VIA THE LEFT BASILIC VEIN UTILIZING SONOGRAPHIC GUIDANCE. PICC Line Insertion 06/02/19 10:45 IMPRESSION: SUCCESSFUL PLACEMENT OF A 5 FR x 45 CM DOUBLE LUMEN PICC VIA THE LEFT BASILIC VEIN UTILIZING SONOGRAPHIC GUIDANCE. Assessment and Plan - Diagnosis (1) Acute respiratory failure with hypoxia Is this a current diagnosis for this admission?: Yes Plan: He already has obesity hypoventilation syndrome along with obstructive sleep apnea, now with diffuse anasarca. Continue supplemental O2 to maintain SPO2 greater than 90%. (2) Anasarca Is this a current diagnosis for this admission?: Yes Plan: he had improved urine output with an increased dose of Lasix. Also on dobutamine. He already has a PICC line. It seems as if he may not be able to get dobutamine on hospice after all. We will continue diuresis him while he is here as long as his kidneys tolerate. With his body habitus is very difficult to tell whether or not diuresis is currently effective. (3) Morbid obesity with BMI of 70 and over, adult Is this a current diagnosis for this admission?: Yes Plan: Strongly encouraged lifestyle modification (4) Obesity hypoventilation syndrome Is this a current diagnosis for this admission?: Yes Plan: Continue with CPAP as needed (5) Obstructive sleep apnea of adult Is this a current diagnosis for this admission?: Yes Plan: He should always use his CPAP at bedtime (6) Acute kidney injury superimposed on CKD Is this a current diagnosis for this admission?: Yes Plan: Kidneys tolerating diuresis very well we will continue unless his creatinine starts to trend back up. His creatinine is actually trending down despite the fact that we are diuresing him aggressively. - Plan Summary Summary: Patient with recent admission in December. Long-term management should include consideration of bariatric surgery. 06/02/2019-after further discussion with the patient and his , the bariatric surgical intervention is not a possibility. I had a chance to talk to the patient's outside of the room. She expressed her frustration. She also expressed the patient's frustration. I did tell her that in all honestly I did not feel the patient would do well. In fact I thought he might get short-term relief from this intervention but he would only be back in the hospital and it would be likely that the windows between periods of decompensation would be getting shorter and shorter. Because I do not think he will make a meaningful recovery and that his condition will only progressively worsen I strongly suggested that the patient and his obtain a palliative care consult. I urged her to consider hospice care at this time. She expressed concern that if this was brought up her would think that she did not love him or care about him. He might think that she wants to get rid of them. I strongly reinforced the fact that after 50 years of marriage it is extremely unlikely that the patient would think that way especially considering all that she sacrifices for the patient. We discussed the fact that the patient is scared but has an underlying suspicion as to the extremely poor prognosis. I have placed a consult for palliative care/hospice. 06/06/2019: When he leaves the hospital he will go home with hospice - Time Time Spent with patient: 15-24 minutes
[2019-06-11] MEDS: SIMVASTATIN 40 MG TABLET PO SCH (22:28)
[2019-06-11] MEDS: DOXAZOSIN MESYLATE 2 MG TABLET PO SCH (22:28)
[2019-06-11] MEDS: OXYCODONE HCL IR 5 MG TABLET PO PRN (23:35)
[2019-06-12] MEDS: HEPARIN SOD (PORCINE) 5,000 UNIT/ML 1 ML VIAL SUBCUT SCH ×3 (05:50→21:43)
[2019-06-12] MEDS: FUROSEMIDE INJ/PF 100 MG/10 ML SDV IV SCH ×2 (05:50→17:05)
[2019-06-12] MEDS: PANTOT AC/MIN OIL/PET HY-PHL OINT 50 GM TOP SCH ×2 (09:25→17:01)
[2019-06-12] MEDS: GLIPIZIDE 5 MG TABLET PO SCH ×2 (09:25→22:03)
[2019-06-12] MEDS: AMLODIPINE BESYLATE 5 MG TABLET PO SCH (09:30)
[2019-06-12] MEDS: DOCUSATE SODIUM 100 MG CAPSULE PO SCH ×2 (09:30→17:01)
[2019-06-12] MEDS: ASPIRIN 81 MG TABLET, ENT COATED PO SCH (09:30)
[2019-06-12] MEDS: NORMAL SALINE 10 ML SDV (SCHEDULED) IV SCH ×2 (09:30→22:04)
[2019-06-12] MEDS: MULTIVITAMIN TABLET PO SCH (09:30)
[2019-06-12] MEDS: FLUTICASONE NASAL SPRAY 50 MCG/SPRY 120 SPRAY/16 GM NASL SCH ×2 (09:31→22:03)
[2019-06-12] MEDS: POLYETHYLENE GLYCOL 3350 POWDER 17 GM/1 PACKET PO SCH (09:31)
[2019-06-12] MEDS: DOBUTAMINE HCL/D5W 500 MG/250 ML RTUINJ IV PRN (09:59)
--- NOTE | 2019-06-12 15:31 | PDOC PROGRESS REPORT ---
Subjective Subjective:: No adverse events overnight. No new complaints. He continues to have a good diuresis. He reiterates his desire to go home on Wednesday. Reason For Visit: ANASARCA Physical Exam Vital Signs: Temp Pulse Resp BP Pulse Ox 97.5 F 95 17 126/62 H 98 06/12/19 11:25 06/12/19 14:00 06/12/19 11:25 06/12/19 14:00 06/12/19 11:25 Intake & Output 06/11/19 06/12/19 06/13/19 06:59 06:59 06:59 Intake Total 886 879 509 Output Total 2150 2080 1000 Balance -1264 -1201 -491 Weight 265 kg 262 kg General appearance: PRESENT: no acute distress, cooperative, disheveled, morbidly obese Respiratory exam: PRESENT: decreased breath sounds, symmetrical, unlabored. ABSENT: accessory muscle use, chest wall tenderness, prolonged expiratory phas, rhonchi, tachypnea, wheezes Cardiovascular exam: PRESENT: RRR, +S1, +S2 Vascular exam: PRESENT: normal capillary refill GI/Abdominal exam: PRESENT: normal bowel sounds, soft. ABSENT: diminished bowel sounds, guarding, rebound, tenderness Extremities exam: PRESENT: pedal edema, +2 edema. ABSENT: clubbing Musculoskeletal exam: PRESENT: normal inspection. ABSENT: deformity Neurological exam: PRESENT: alert, awake, oriented to person, oriented to place, oriented to situation Psychiatric exam: PRESENT: appropriate affect, normal mood Skin exam: PRESENT: dry, warm, other - He has some blisters on the anterior shins associated with fluid overload and some cool erythema associated with long-standing chronic venous insufficiency Results Laboratory Results: 06/07/19 06:35 06/09/19 08:07 06/01/19 06/01/19 13:25 13:25 Creatine Kinase 468 H Troponin I 0.014 NT-Pro-B Natriuret Pep 1980 H Impressions: Chest X-Ray 06/01/19 13:34 IMPRESSION: STABLE APPEARANCE. MILD CARDIOMEGALY. NO ACUTE RADIOGRAPHIC FINDING IN THE CHEST. Interventional Vascular Procedure 06/02/19 00:00 IMPRESSION: SUCCESSFUL PLACEMENT OF A 5 FR x 45 CM DOUBLE LUMEN PICC VIA THE LEFT BASILIC VEIN UTILIZING SONOGRAPHIC GUIDANCE. PICC Line Insertion 06/02/19 10:45 IMPRESSION: SUCCESSFUL PLACEMENT OF A 5 FR x 45 CM DOUBLE LUMEN PICC VIA THE LEFT BASILIC VEIN UTILIZING SONOGRAPHIC GUIDANCE. Assessment and Plan - Diagnosis (1) Acute respiratory failure with hypoxia Is this a current diagnosis for this admission?: Yes Plan: He already has obesity hypoventilation syndrome along with obstructive sleep apnea, now with diffuse anasarca. Continue supplemental O2 to maintain SPO2 greater than 90%. (2) Anasarca Is this a current diagnosis for this admission?: Yes Plan: He is going to go home with hospice tomorrow. We will go home on increased dose of Lasix plus Aldactone. He will not be going on dobutamine, and he is at a point where I do not think it is doing anything for him anymore. (3) Morbid obesity with BMI of 70 and over, adult Is this a current diagnosis for this admission?: Yes Plan: Strongly encouraged lifestyle modification (4) Obesity hypoventilation syndrome Is this a current diagnosis for this admission?: Yes Plan: Continue with CPAP as needed (5) Obstructive sleep apnea of adult Is this a current diagnosis for this admission?: Yes Plan: He should always use his CPAP at bedtime (6) Acute kidney injury superimposed on CKD Is this a current diagnosis for this admission?: Yes Plan: Kidneys tolerating diuresis very well we will continue unless his creatinine starts to trend back up. His creatinine is actually trending down despite the fact that we are diuresing him aggressively. - Plan Summary Summary: Patient with recent admission in December. Long-term management should include consideration of bariatric surgery. 06/02/2019-after further discussion with the patient and his , the bariatric surgical intervention is not a possibility. I had a chance to talk to the patient's outside of the room. She expressed her frustration. She also expressed the patient's frustration. I did tell her that in all honestly I did not feel the patient would do well. In fact I thought he might get short-term relief from this intervention but he would only be back in the hospital and it would be likely that the windows between periods of decompensation would be getting shorter and shorter. Because I do not think he will make a meaningful recovery and that his condition will only progressively worsen I strongly suggested that the patient and his obtain a palliative care consult. I urged her to consider hospice care at this time. She expressed concern that if this was brought up her would think that she did not love him or care about him. He might think that she wants to get rid of them. I strongly reinforced the fact that after 50 years of marriage it is extremely unlikely that the patient would think that way especially considering all that she sacrifices for the patient. We discussed the fact that the patient is scared but has an underlying suspicion as to the extremely poor prognosis. I have placed a consult for palliative care/hospice. 06/06/2019: When he leaves the hospital he will go home with hospice - Time Time Spent with patient: 15-24 minutes
--- NOTE | 2019-06-12 16:00 | PDOC DISCHARGE SUMMARY ---
Impression - Admit/DC Date/PCP Admission Date/Primary Care Provider: 06/01/19 16:18 [facility] Discharge Date: 06/13/19 - Discharge Diagnosis (1) Acute respiratory failure with hypoxia Is this a current diagnosis for this admission?: Yes (2) Anasarca Is this a current diagnosis for this admission?: Yes (3) Morbid obesity with BMI of 70 and over, adult Is this a current diagnosis for this admission?: Yes (4) Obesity hypoventilation syndrome Is this a current diagnosis for this admission?: Yes (5) Obstructive sleep apnea of adult Is this a current diagnosis for this admission?: Yes (6) Acute kidney injury superimposed on CKD Is this a current diagnosis for this admission?: Yes - Assessment Summary: Patient with recent admission in December. Long-term management should include consideration of bariatric surgery. 06/02/2019-after further discussion with the patient and his , the bariatric surgical intervention is not a possibility. I had a chance to talk to the patient's outside of the room. She expressed her frustration. She also expressed the patient's frustration. I did tell her that in all honestly I did not feel the patient would do well. In fact I thought he might get short-term relief from this intervention but he would only be back in the hospital and it would be likely that the windows between periods of decompensation would be getting shorter and shorter. Because I do not think he will make a meaningful recovery and that his condition will only progressively worsen I strongly suggested that the patient and his obtain a palliative care consult. I urged her to consider hospice care at this time. She expressed concern that if this was brought up her would think that she did not love him or care about him. He might think that she wants to get rid of them. I strongly reinforced the fact that after 50 years of marriage it is extremely unlikely that the patient would think that way especially considering all that she sacrifices for the patient. We discussed the fact that the patient is scared but has an underlying suspicion as to the extremely poor prognosis. I have placed a consult for palliative care/hospice. 06/06/2019: When he leaves the hospital he will go home with hospice - Additional Information Resuscitation Status: Do Not Resuscitate Discharge Diet: Cardiac, Diabetic Discharge Activity: Activity As Tolerated, Balance Activity w/Rest Referrals: [facility] [Primary [facility]] - Follow up as needed Home Medications: Acetaminophen [Tylenol 325 mg Tablet] 650 mg PO Q4HP PRN 06/01/19 Albuterol Sulfate [Proair Hfa Inhalation Aerosol 8.5 gm Mdi] 2 puff IH Q6HP PRN 06/01/19 Amlodipine Besylate [Norvasc 10 mg Tablet] 5 mg PO DAILY 06/01/19 Aspirin [Ecotrin 81 mg EC Tablet] 81 mg PO DAILY 06/01/19 Carboxymethylcellulose Sodium [Refresh Plus 0.5% Oph Soln 0.4 ml [place]] 1 drop OU BIDP PRN 06/01/19 Docusate Sodium [Colace 100 mg Capsule] 100 mg PO QHS 06/01/19 Fluticasone Propionate [Flonase Nasal [place] 50 Mcg/[place] 16 gm] 1 spray NASL Q12 06/01/19 Furosemide [Lasix 80 mg Tablet] 80 mg PO QAM 06/01/19 Glipizide [Glocotrol 5 Mg Tablet] 5 mg PO Q12 06/01/19 Hydralazine HCl [Apresoline 10 mg Tablet] 10 mg PO Q8 06/01/19 Multivitamin [Multiple Vitamins] 1 each PO DAILY 06/01/19 Petrolatum,White [Hydrophor] 1 applic TP BID 06/01/19 Simvastatin [Zocor 80 mg Tablet] 40 mg PO QHS 06/01/19 Sodium Chloride [S[place] Nasal [place] 44 ml Bottle] 1 spray NASL Q4HP PRN 06/01/19 Terazosin HCl [Hytrin] 2 mg PO QHS 06/01/19 History of Present Illiness History of Present Illness: NOE VICK is a 73 year old male with multiple previous admissions who reports that over the last month he had slowly been getting more more short of breath, noted more swelling and increasing weight. He is super morbidly obese and has had multiple previous admissions. He was referred to the hospital by his traffic control specialist for admission and IV dobutamine. Hospital Course Hospital Course: Despite the fact that he has a preserved ejection fraction, he had responded to this treatment previously and so we decided to put him on dobutamine and Lasix. Plan to escalate his diuresis of Lasix before he finally got a diuretic response. Despite the fact that he was in a net negative fluid balance over several days, it was not readily apparent whether or not this treatment was actually working. Hospice consult was obtained. We initially thought about sending him home with dobutamine for a few more days, but after some difficulties with that we decided against it, also considering the fact that he had been on it for several days and has not really showing much of a clinical improvement. He will keep the Wray catheter when he goes home. His creatinine actually got better with diuresis. Plan is for him to go home with hospice tomorrow. Physical Exam Vital Signs: Temp Pulse Resp BP Pulse Ox 97.5 F 95 17 126/62 H 98 06/12/19 11:25 06/12/19 14:00 06/12/19 11:25 06/12/19 14:00 06/12/19 11:25 Intake & Output 06/11/19 06/12/19 06/13/19 06:59 06:59 06:59 Intake Total 886 879 509 Output Total 2150 2080 1000 Balance -1264 -1201 -491 Weight 265 kg 262 kg General appearance: PRESENT: no acute distress, cooperative, disheveled, morbidly obese Respiratory exam: PRESENT: decreased breath sounds, symmetrical, unlabored. ABSENT: accessory muscle use, chest wall tenderness, prolonged expiratory phas, rhonchi, tachypnea, wheezes Cardiovascular exam: PRESENT: RRR, +S1, +S2 Vascular exam: PRESENT: normal capillary refill GI/Abdominal exam: PRESENT: normal bowel sounds, soft. ABSENT: diminished bowel sounds, guarding, rebound, tenderness Extremities exam: PRESENT: pedal edema, +2 edema. ABSENT: clubbing Musculoskeletal exam: PRESENT: normal inspection. ABSENT: deformity Neurological exam: PRESENT: alert, awake, oriented to person, oriented to place, oriented to situation Psychiatric exam: PRESENT: appropriate affect, normal mood Skin exam: PRESENT: dry, warm, other - He has some blisters on the anterior shins associated with fluid overload and some cool erythema associated with long-standing chronic venous insufficiency Results Laboratory Results: WBC 4.3 10^3/uL (4.0-10.5) 06/07/19 06:35 RBC 3.11 10^6/uL (4.35-5.55) L 06/07/19 06:35 Hgb 9.3 g/dL (13.5-17.0) L 06/07/19 06:35 Hct 28.2 % (37.9-51.0) L 06/07/19 06:35 MCV 91 fl (80-97) 06/07/19 06:35 MCH 29.8 pg (27.0-33.4) 06/07/19 06:35 MCHC 32.8 g/dL (32.0-36.0) 06/07/19 06:35 RDW 16.4 % (11.5-14.0) H 06/07/19 06:35 Plt Count 163 10^3/uL (150-450) 06/07/19 06:35 Lymph % (Auto) 7.6 % (13-45) L 06/04/19 06:08 [place] % (Auto) 15.4 % (3-13) H 06/04/19 06:08 Eos % (Auto) 5.7 % (0-6) 06/04/19 06:08 Baso % (Auto) 1.5 % (0-2) 06/04/19 06:08 Reticulocyte # 0.044 10^6/uL (0.028-0.122) 06/06/19 05:37 Absolute Neuts (auto) 3.4 10^3/uL (1.7-8.2) 06/04/19 06:08 Absolute Lymphs (auto) 0.4 10^3/uL (0.5-4.7) L 06/04/19 06:08 Absolute Monos (auto) 0.7 10^3/uL (0.1-1.4) 06/04/19 06:08 Absolute Eos (auto) 0.3 10^3/uL (0.0-0.6) 06/04/19 06:08 Absolute Basos (auto) 0.1 10^3/uL (0.0-0.2) 06/04/19 06:08 Seg Neutrophils % 69.8 % (42-78) 06/04/19 06:08 Retic Count (auto) 1.46 % (0.66-2.85) 06/06/19 05:37 VBG pH 7.39 (7.30-7.42) 06/01/19 14:20 VBG pCO2 55.5 mmHg (35-63) 06/01/19 14:20 VBG HCO3 32.6 mmol/L (20-32) H 06/01/19 14:20 VBG Base Excess 6.4 mmol/L 06/01/19 14:20 Sodium 142.4 mmol/L (137-145) 06/09/19 08:07 Potassium 3.9 mmol/L (3.6-5.0) 06/09/19 08:07 Chloride 102 mmol/L (98-107) 06/09/19 08:07 Carbon Dioxide 33 mmol/L (22-30) H 06/09/19 08:07 Anion Gap 7 (5-19) 06/09/19 08:07 BUN 30 mg/dL (7-20) H 06/09/19 08:07 Creatinine 1.72 mg/dL (0.52-1.25) H 06/09/19 08:07 Est GFR ( Amer) 48 (>60) L 06/09/19 08:07 Est GFR (MDRD) Non-Af 39 (>60) L 06/09/19 08:07 Glucose 129 mg/dL (75-110) H 06/09/19 08:07 POC Glucose 84 mg/dL (70-110) 06/11/19 07:04 Calcium 8.7 mg/dL (8.4-10.2) 06/09/19 08:07 Phosphorus 4.7 mg/dL (2.5-4.5) H 06/03/19 06:30 Magnesium 2.5 mg/dL (1.6-2.3) H 06/02/19 04:51 Iron 22.8 ug/dL (49-181) L 06/06/19 05:37 TIBC 299 ug/dL (250-450) 06/06/19 05:37 % Saturation 8 % 06/06/19 05:37 Ferritin 52.10 ng/mL (17.9-464.0) 06/06/19 05:37 Total Bilirubin 0.9 mg/dL (0.2-1.3) 06/01/19 13:25 Direct Bilirubin 0.2 mg/dL (0.0-0.4) 06/01/19 13:25 Neonat Total Bilirubin Not Reportable 06/01/19 13:25 Neonat Direct Bilirubin Not Reportable 06/01/19 13:25 Neonat Indirect Bili Not Reportable 06/01/19 13:25 AST 54 U/L (17-59) 06/01/19 13:25 ALT 22 U/L (<50) 06/01/19 13:25 Alkaline Phosphatase 88 U/L (38-126) 06/01/19 13:25 Creatine Kinase 468 U/L (55-170) H 06/01/19 13:25 Troponin I 0.014 ng/mL 06/01/19 13:25 NT-Pro-B Natriuret Pep 1980 pg/mL (<125) H 06/01/19 13:25 Total Protein 8.5 g/dL (6.3-8.2) H 06/01/19 13:25 Albumin 3.7 g/dL (3.5-5.0) 06/03/19 06:30 Vitamin B12 432.0 pg/mL (239-931) 06/06/19 05:37 Folate 12.50 ng/mL (>2.76) 06/06/19 05:37 Urine Color YELLOW 06/01/19 16:24 Urine Appearance CLEAR 06/01/19 16:24 Urine pH 5.0 (5.0-9.0) 06/01/19 16:24 Ur Specific [place] 1.016 06/01/19 16:24 Urine Protein NEGATIVE mg/dL (NEGATIVE) 06/01/19 16:24 Urine Glucose (UA) NEGATIVE mg/dL (NEGATIVE) 06/01/19 16:24 Urine Ketones NEGATIVE mg/dL (NEGATIVE) 06/01/19 16:24 Urine Blood NEGATIVE (NEGATIVE) 06/01/19 16:24 Urine Nitrite NEGATIVE (NEGATIVE) 06/01/19 16:24 Urine Bilirubin NEGATIVE (NEGATIVE) 06/01/19 16:24 Urine Urobilinogen NEGATIVE mg/dL (<2.0) 06/01/19 16:24 Ur Leukocyte Esterase NEGATIVE (NEGATIVE) 06/01/19 16:24 Urine WBC (Auto) 0 /HPF 06/01/19 16:24 Urine RBC (Auto) 0 /HPF 06/01/19 16:24 Urine Bacteria (Auto) TRACE /HPF 06/01/19 16:24 Urine Mucus (Auto) RARE /LPF 06/01/19 16:24 Urine Ascorbic Acid NEGATIVE (NEGATIVE) 06/01/19 16:24 06/01/19 13:25 Troponin I 0.014 NT-Pro-B Natriuret Pep 1980 H Impressions: Chest X-Ray 06/01/19 13:34 IMPRESSION: STABLE APPEARANCE. MILD CARDIOMEGALY. NO ACUTE RADIOGRAPHIC FINDING IN THE CHEST. Interventional Vascular Procedure 06/02/19 00:00 IMPRESSION: SUCCESSFUL PLACEMENT OF A 5 FR x 45 CM DOUBLE LUMEN PICC VIA THE LEFT BASILIC VEIN UTILIZING SONOGRAPHIC GUIDANCE. PICC Line Insertion 06/02/19 10:45 IMPRESSION: SUCCESSFUL PLACEMENT OF A 5 FR x 45 CM DOUBLE LUMEN PICC VIA THE LEFT BASILIC VEIN UTILIZING SONOGRAPHIC GUIDANCE. Plan Goals: The patient will be making their own appointment. Time Spent: Greater than 30 Minutes Stroke Is this a Stroke Patient?: No Acute Heart Failure - Is this a Heart Failure Patient?: No
[2019-06-12] MEDS: DOXAZOSIN MESYLATE 2 MG TABLET PO SCH (22:03)
[2019-06-12] MEDS: SIMVASTATIN 40 MG TABLET PO SCH (22:03)
[2019-06-12] MEDS: OXYCODONE HCL IR 5 MG TABLET PO PRN (22:19)
[2019-06-13] MEDS: DOBUTAMINE HCL/D5W 500 MG/250 ML RTUINJ IV PRN (00:10)
[2019-06-13] MEDS: HEPARIN SOD (PORCINE) 5,000 UNIT/ML 1 ML VIAL SUBCUT SCH ×2 (06:07→12:59)
[2019-06-13] MEDS: FUROSEMIDE INJ/PF 100 MG/10 ML SDV IV SCH ×2 (06:13→18:10)
[2019-06-13] MEDS: ASPIRIN 81 MG TABLET, ENT COATED PO SCH (10:05)
[2019-06-13] MEDS: DOCUSATE SODIUM 100 MG CAPSULE PO SCH ×2 (10:05→18:10)
[2019-06-13] MEDS: PANTOT AC/MIN OIL/PET HY-PHL OINT 50 GM TOP SCH ×2 (10:05→18:10)
[2019-06-13] MEDS: FLUTICASONE NASAL SPRAY 50 MCG/SPRY 120 SPRAY/16 GM NASL SCH (10:05)
[2019-06-13] MEDS: AMLODIPINE BESYLATE 5 MG TABLET PO SCH (10:06)
[2019-06-13] MEDS: NORMAL SALINE 10 ML SDV (SCHEDULED) IV SCH (10:06)
[2019-06-13] MEDS: POLYETHYLENE GLYCOL 3350 POWDER 17 GM/1 PACKET PO SCH (10:06)
[2019-06-13] MEDS: MULTIVITAMIN TABLET PO SCH (10:06)
[2019-06-13] MEDS: GLIPIZIDE 5 MG TABLET PO SCH (10:06)
[2019-06-13 12:22] VITALS: BP 128/55
--- NOTE | 2019-06-13 15:54 | Progress Note ---
Provider Note Provider Note: The patient was having significant nasal congestion. I did stop in the room to wish him luck and say goodbye. After brief discussion I have ordered 60 mg of Sudafed and encouraged the to purchase a nasal rinse system which will be very effective.
[2019-06-13] MEDS ORDERED: PSEUDOEPHEDRINE HCL 30 MG TABLET PO ONE (16:15)
== END 2019-06-13 18:38 | disposition hospice, home (50) | DRG 291 ==
LOC: ER 11:56 → EH 16:18 → 3W 17:49
PROVIDERS: ADMIT Internal Medicine; ATTEND Internal Medicine
PROC: 02HV33Z Insertion of Infusion Device into Superior Vena Cava, Percutaneous Approach (ICD-10-PCS; principal; 2019-06-02)
DX: I13.0 Hypertensive heart and chronic kidney disease with heart failure and stage 1 through stage 4 chronic kidney disease, or unspecified chronic kidney disease (principal); J96.01 Acute respiratory failure with hypoxia; N17.9 Acute kidney failure, unspecified; Z68.45 Body mass index [BMI] 70 or greater, adult; E66.2 Morbid (severe) obesity with alveolar hypoventilation; I50.40 Unspecified combined systolic (congestive) and diastolic (congestive) heart failure; I27.20 Pulmonary hypertension, unspecified; D63.1 Anemia in chronic kidney disease; Z51.5 Encounter for palliative care; E11.22 Type 2 diabetes mellitus with diabetic chronic kidney disease; N18.3 Chronic kidney disease, stage 3 (moderate); Z66 Do not resuscitate; I87.2 Venous insufficiency (chronic) (peripheral); I25.10 Atherosclerotic heart disease of native coronary artery without angina pectoris; D50.9 Iron deficiency anemia, unspecified; J44.9 Chronic obstructive pulmonary disease, unspecified; E78.5 Hyperlipidemia, unspecified; K59.00 Constipation, unspecified; R60.1 Generalized edema; R09.81 Nasal congestion; Z79.82 Long term (current) use of aspirin; Z79.84 Long term (current) use of oral hypoglycemic drugs; I25.2 Old myocardial infarction; Z85.46 Personal history of malignant neoplasm of prostate; Z87.891 Personal history of nicotine dependence; Z80.6 Family history of leukemia; Z88.8 Allergy status to other drugs, medicaments and biological substances; Z95.5 Presence of coronary angioplasty implant and graft; Z89.022 Acquired absence of left finger(s)
CPT/HCPCS: 36415; 36569; 71045; 76937; 80048; 80053; 80069; 81001; 82550; 82607; 82728; 82746; 82803; 82962; 83540; 83550; 83735; 83880; 84484; 85025; 85027; 85045; 93005; 93010; 94640; 96374; 99285; C1758; J1250; J1439; J1642; J1644; J1885; J1940; J3490; J7050; J7620

== ENCOUNTER 2019-06-29 22:45 | Emergency (ER) | payer OTHER, MEDICARE ==
--- NOTE | 2019-06-29 23:47 | ER Document Report ---
ED GI/ - General Chief Complaint: Problem with Urinary Catheter Stated Complaint: SHRESTHA CATHETER BACKING UP Time Seen by Provider: 06/29/19 23:37 [facility] [[facility]] - Follow up as needed Mode of Arrival: Medic Information source: Patient Notes: 73-year-old male presented to ED for complaint of difficulty with his Shrestha catheter. He states that it would not drain at home and his home health and health hospice nurse came to the house and they were not able to get the Shrestha draining. He states they brought him to the hospital to get his Shrestha catheter changed. Patient is on hospice due to congestive heart failure kidney failure diabetes and blood pressure problems. He is on the Shrestha catheter for kidney failure due to urinary retention. TRAVEL OUTSIDE OF THE [place] IN LAST 30 DAYS: No - HPI Patient complains to provider of: Shrestha catheter problem Onset: Yesterday Timing/Duration: Intermittent Quality of pain: No pain Severity at maximum: Moderate Severity in ED: None Pain Level: Denies Location: Other - Pelvic earlier none now Associated symptoms: Shortness of breath - Due to his CHF Exacerbated by: Denies Relieved by: Denies Similar symptoms previously: Yes Recently seen / treated by doctor: Yes - A month ago - Related Data Allergies/Adverse Reactions: ROSETTE Inhibitors Allergy (Unknown, Verified 06/01/19 16:10) Home Medications: Amlodipine. Spironolactone. Lisinopril. Furosemide. Glipizide. Simvastatin. ASA. Stool Softener Past Medical History - General Information source: Patient - Social History Smoking Status: Former Smoker Chew tobacco use (# tins/day): No Frequency of alcohol use: None Drug Abuse: None Lives with: Family Family History: None Patient has suicidal ideation: No Patient has homicidal ideation: No - Past Medical History Cardiac Medical History: Reports: Hx Congestive Heart Failure, Hx Heart Attack, Hx Hypercholesterolemia, Hx Hypertension Pulmonary Medical History: Reports: Hx Bronchitis, Hx COPD, Hx Pneumonia, Hx Sleep Apnea - DWAYNE On BiPAP Endocrine Medical History: Reports: Hx Diabetes Mellitus Type 2 Renal/ Medical History: Reports: Other - History of kidney failure but kidneys work since catheter is been in. Denies: Hx Peritoneal Dialysis Malignancy Medical History: Reports Hx Prostate Cancer GI Medical History: Reports: Hx Colonoscopy, Other Musculoskeletal Medical History: Reports Hx Arthritis, Reports Hx Musculoskeletal Trauma Skin Medical History: Reports None Psychiatric Medical History: Reports: None Traumatic Medical History: Reports: None Infectious Medical History: Reports: None Past Surgical History: Reports: Hx Cardiac Catheterization, Hx Coronary Stent - 2, Hx Genitourinary Surgery - Half of prostate removed, Hx Orthopedic Surgery - Amputated finger at work surgical repair completed, Other - Left index finger distal phalanx amputation,cryogenic partial prostatectomy - Immunizations Immunizations up to date: Yes Hx Diphtheria, Pertussis, Tetanus Vaccination: Yes History of Pneumococcal Vaccine: No History of Influenza Vaccine for 04/2019 - 09/2019 Season: Yes Review of Systems - Review of Systems Constitutional: No symptoms reported EENT: No symptoms reported Cardiovascular: No symptoms reported Respiratory: No symptoms reported Gastrointestinal: No symptoms reported Genitourinary: No symptoms reported Male Genitourinary: No symptoms reported Musculoskeletal: No symptoms reported Skin: No symptoms reported Hematologic/Lymphatic: No symptoms reported Neurological/Psychological: No symptoms reported -: Yes All other systems reviewed and negative Physical Exam - Vital signs Interpretation: Normal - Notes Notes: severely morbidly obese - General General appearance: Appears well, Alert - HEENT Head: Normocephalic, Atraumatic Eyes: Normal Pupils: PERRL Ears: Normal External canal: Normal Tympanic membrane: Normal Sinus: Normal Nasal: Purulent discharge, Swelling Mouth/Lips: Normal Mucous membranes: Normal Pharynx: Normal - Respiratory Respiratory status: No respiratory distress Chest status: Nontender Breath sounds: Normal Chest palpation: Normal - Cardiovascular Rhythm: Regular Heart sounds: Normal auscultation Murmur: No - Abdominal Inspection: Normal Distension: No distension Bowel sounds: Normal Tenderness: Nontender Organomegaly: No organomegaly - Back Back: Normal, Nontender - Extremities General upper extremity: Normal inspection, Nontender, Normal color, Normal ROM, Normal temperature General lower extremity: Normal inspection, Nontender, Normal color, Normal ROM, Normal temperature, Normal weight bearing. No: Brady's sign - Neurological Neuro grossly intact: Yes Cognition: Normal Orientation: AAOx4 Hallie Coma Scale Eye Opening: Spontaneous Hallie Coma Scale Verbal: Oriented Mirella Coma Scale Motor: Obeys Commands Mirella Coma Scale Total: 15 Speech: Normal Motor strength normal: LUE, RUE, LLE, RLE Sensory: Normal - Psychological Associated symptoms: Normal affect, Normal mood - Skin Skin Temperature: Warm Skin Moisture: Dry Skin Color: Normal Course - Re-evaluation Re-evalutation: 06/30/19 00:29 Shrestha catheter was changed and within 75 days of drainage the Shrestha reoccluded with sediment. The nurse has been instructed to irrigate with sterile water every hour or so until he is discharged. has been instructed that this will need to be irrigated frequently. She states home health and hospice is coming out tomorrow. I have instructed her to please have them show her how to irrigate the Shrestha if he cannot have someone come out and irrigated. She stated she is perfectly willing to learn how if that is what is needed because she does not want the Shrestha taken out and left out. 06/30/19 00:30 Patient is awaiting transport home. He is very morbidly obese and needs extra assistance to transport home 06/30/19 00:[address] Dougherty and PA that the patient is awaiting transport home Discharge - Discharge Clinical Impression: Retention of urine due to occlusion of Shrestha catheter Condition: Stable Disposition: HOME, SELF-CARE Additional Instructions: He was seen today for an occlusion to your Shrestha. There is a lot of sediment buildup in your bladder. You will need to be seen by your primary care or urologist. You will need your Shrestha irrigated a couple times a day until the sediment is decreased in your bladder. There is a lot of sediment in the bladder which will plug the catheter. When home health and hospice comes out in the morning to see if they can teach the to irrigate the catheter. FOLLOW-UP CARE: If you have been referred to a physician for follow-up care, call the physicians office for an appointment as you were instructed or within the next two days. If you experience worsening or a significant change in your symptoms, notify the physician immediately or return to the Emergency Department at any time for re-evaluation. [facility]errals: [facility] [Primary [facility]] - Follow up as needed
[2019-06-30 02:08] VITALS: BP 118/55
== END 2019-06-30 02:08 | disposition home or self-care (01) ==
LOC: ER 22:45
DX: T83.098A Other mechanical complication of other urinary catheter, initial encounter (principal); R33.8 Other retention of urine; Y84.6 Urinary catheterization as the cause of abnormal reaction of the patient, or of later complication, without mention of misadventure at the time of the procedure; Y92.009 Unspecified place in unspecified non-institutional (private) residence as the place of occurrence of the external cause; I11.9 Hypertensive heart disease without heart failure; J44.9 Chronic obstructive pulmonary disease, unspecified; E11.9 Type 2 diabetes mellitus without complications; E78.00 Pure hypercholesterolemia, unspecified; E66.01 Morbid (severe) obesity due to excess calories; R09.89 Other specified symptoms and signs involving the circulatory and respiratory systems; R06.02 Shortness of breath; Z79.899 Other long term (current) drug therapy; Z79.84 Long term (current) use of oral hypoglycemic drugs; Z79.82 Long term (current) use of aspirin; Z85.46 Personal history of malignant neoplasm of prostate; Z95.5 Presence of coronary angioplasty implant and graft; Z87.891 Personal history of nicotine dependence
CPT/HCPCS: 51702; 99283